=== PATIENT | female | born 1970 | race Caucasian/White ===

== ENCOUNTER 2018-06-26 21:47 | Emergency (ER) | payer SELFPAY ==
[2018-06-26 23:49] LABS: ALANINE AMINOTRANSFERASE 22 U/L (9-52); ALBUMIN 4.5 g/dL (3.5-5.0); ALCOHOL 66 mg/dL (NONE DETECTED); ALKALINE PHOSPHATASE 68 U/L (38-126); ANION GAP 10 (5-19); ASPARTATE AMINO TRANSFERASE 24 U/L (14-36); BILIRUBIN,DIRECT 0.2 mg/dL (0.0-0.4); BILIRUBIN,TOTAL 0.3 mg/dL (0.2-1.3); BLOOD UREA NITROGEN 13 mg/dL (7-20); CALCIUM 9.6 mg/dL (8.4-10.2); CARBON DIOXIDE 27 mmol/L (22-30); CHLORIDE 105 mmol/L (98-107); GLUCOSE 86 mg/dL (75-110); POTASSIUM 3.9 mmol/L (3.6-5.0); TOTAL PROTEIN 7.2 g/dL (6.3-8.2)
[2018-06-26 23:52] LABS: ACETAMINOPHEN < 10 ug/mL (10-30); SALICYLATE < 1.0 mg/dL (2.0-20.0)
[2018-06-26 23:54] LABS: APPEARANCE,URINE SLIGHTLY-CLOUDY; BILIRUBIN,URINE NEGATIVE (NEGATIVE); COLOR,URINE STRAW; GLUCOSE, URINE NEGATIVE (NEGATIVE); KETONES,URINE NEGATIVE (NEGATIVE); LEUKOCYTE ESTERASE,URINE SMALL (NEGATIVE); NITRITE,URINE NEGATIVE (NEGATIVE); PROTEIN,URINE NEGATIVE (NEGATIVE); URINE SPECIFIC GRAVITY 1.004; UROBILINOGEN,URINE NEGATIVE mg/dL (<2.0)
[2018-06-27 00:12] LABS: URINE AMPHETAMINES SCREEN NEGATIVE; URINE BARBITURATES SCREEN NEGATIVE; URINE BENZODIAZEPINES SCREEN NEGATIVE; URINE COCAINE SCREEN UNCONFIRMED POSITIVE; URINE MARIJUANA (THC) SCREEN NEGATIVE; URINE METHADONE SCREEN NEGATIVE; URINE PHENCYCLIDINE SCREEN NEGATIVE
--- NOTE | 2018-06-27 00:28 | ER Document Report ---
Addendum entered and electronically signed by DARREN NASH MD 06/27/18 12:13: Discharge - Discharge Clinical Impression: Diphenhydramine overdose Qualifiers: Encounter type: initial encounter Injury intent: intentional self-harm Qualified Code(s): T45.0X2A - Poisoning by antiallergic and antiemetic drugs, intentional self-harm, initial encounter Depression Qualifiers: Depression Type: unspecified Qualified Code(s): F32.9 - Major depressive disord er, single episode, unspecified Condition: Stable Disposition: HOME, SELF-CARE Additional Instructions: You have been evaluated by both medical and behavioral health teams and have been deemed appropriate for discharge. You have been provided prescription for zyprexa 5mg twice daily; please take as directed. You have been provided a local resource list of area providers and mobile crisis contact information. Please follow up with outpatient mental health services in 3-5 days. DEPRESSION: Your evaluation reveals that you have mental depression. While symptoms may be vague, they often include disturbance of sleep, fatigue, loss of appetite, and general loss of interest in life. While depression may be a side effect of drugs, or a reaction to a major change in your life, many cases have no known cause. If depression is acute, and related to a major loss in your life, you can expect it to clear completely with time. If you have been depressed a long time, are prone to repeated bouts of depression or low mood, or have been thinking of suicide, get help. Depression can be treated with anti-depressant medication and counselling. Long-term depression will often take a few weeks to clear, even with appropriate medication. Follow-up care is important. FOLLOW-UP CARE: If you have been referred to a physician for follow-up care, call the physicians office for an appointment as you were instructed or within the next two days.~ If you experience worsening or a significant change in your symptoms, notify the physician immediately or return to the Emergency Department at any time for re-evaluation. Prescriptions: Olanzapine [Zyprexa 5 mg Tablet] 5 mg PO BID #14 tablet Referrals: [facility] [Outside] - Follow up as needed [facility] [Outside] - Follow up in 3-5 days Addendum entered and electronically signed by DARREN NASH MD 06/27/18 12:11: Discharge - Discharge Clinical Impression: Diphenhydramine overdose Qualifiers: Encounter type: initial encounter Injury intent: intentional self-harm Qualified Code(s): T45.0X2A - Poisoning by antiallergic and antiemetic drugs, intentional self-harm, initial encounter Depression Qualifiers: Depression Type: unspecified Qualified Code(s): F32.9 - Major depressive disorder, single episode, unspecified Condition: Stable Disposition: HOME, SELF-CARE Additional Instructions: You have been evaluated by both medical and behavioral health teams and have been deemed appropriate for discharge. You have been provided prescription for zyprexa 5mg twice daily; please take as directed. You have been provided a local resource list of area providers and mobile crisis contact information. Please follow up with outpatient mental health services in 3-5 days. DEPRESSION: Your evaluation reveals that you have mental depression. While symptoms may be vague, they often include disturbance of sleep, fatigue, loss of appetite, and general loss of interest in life. While depression may be a side effect of drugs, or a reaction to a major change in your life, many cases have no known cause. If depression is acute, and related to a major loss in your life, you can expect it to clear completely with time. If you have been depressed a long time, are prone to repeated bouts of depression or low mood, or have been thinking of suicide, get help. Depression can be treated with anti-depressant medication and counselling. Long-term depression will often take a few weeks to clear, even with appropriate medication. Follow-up care is important. FOLLOW-UP CARE: If you have been referred to a physician for follow-up care, call the ysicians office for an appointment as you were instructed or within the next two days.~ If you experience worsening or a significant change in your symptoms, notify the physician immediately or return to the Emergency Department at any time for re-evaluation. Referrals: [facility] [Outside] - Follow up as needed [facility] [Outside] - Follow up in 3-5 days Addendum entered and electronically signed by ALEX GARCIA LCSWA 06/27/18 11:39: Discharge - Discharge Clinical Impression: Diphenhydramine overdose Qualifiers: Encounter type: initial encounter Injury intent: intentional self-harm Qualifi ed Code(s): T45.0X2A - Poisoning by antiallergic and antiemetic drugs, intentional self-harm, initial encounter Depression Qualifiers: Depression Type: unspecified Qualified Code(s): F32.9 - Major depressive dis order, single episode, unspecified Condition: Stable Disposition: HOME, SELF-CARE Additional Instructions: You have been evaluated by both medical and behavioral health teams and have been deemed appropriate for discharge. You have been provided prescription for zyprexa 5mg twice daily; please take as directed. You have been provided a local resource list of area providers and mobile crisis contact information. Please follow up with outpatient mental health services in 3-5 days. DEPRESSION: Your evaluation reveals that you have mental depression. While symptoms may be vague, they often include disturbance of sleep, fatigue, loss of appetite, and general loss of interest in life. While depression may be a side effect of drugs, or a reaction to a major change in your life, many cases have no known cause. If depression is acute, and related to a major loss in your life, you can expect it to clear completely with time. If you have been depressed a long time, are prone to repeated bouts of depression or low mood, or have been thinking of suicide, get help. Depression can be treated with anti-depressant medication and counselling. Long-term depression will often take a few weeks to clear, even with appropriate medication. Follow-up care is important. FOLLOW-UP CARE: If you have been referred to a physician for follow-up care, call the physicians office for an appointment as you were instructed or within the next two days.~ If you experience worsening or a significant change in your symptoms, notify the physician immediately or return to the Emergency Department at any time for re-evaluation. Referrals: [facility] [Outside] - Follow up as needed [facility] [Outside] - Follow up in 3-5 days Original Note: ED General - General Chief Complaint: Possible Overdose Stated Complaint: POSSIBLE OVERDOSE Time Seen by Provider: 06/26/18 22:02 Notes: Patient is a 48-year-old female with past medical history of polysubstance abuse, multiple psychiatric comorbidities, presents after allegedly ingesting 30 25 mg tablets of Benadryl shortly prior to arrival. Apparently this was an alleged suicide attempt although at the time of my evaluation the patient denies this stating that this was merely something that she did try to make significant with other with whom she lives "leave me alone". The patient reports that she just wants to go home, denies that there is a true suicide attempt tonight. Denies any acute medical concerns although does note that since taking these medications she has developed a generalized, throbbing, global headache similar to headaches she has had in the past. Nothing improves or worsens the headache. She also notes that she has felt somewhat nauseated and has had one episode of vomiting. - Related Data Allergies/Adverse Reactions: povidone-iodine [From Betadine] Allergy (Verified 06/26/18 22:53) soap [From Betadine] Allergy (Verified 06/26/18 22:53) tramadol [From Ultram] Allergy (Verified 06/26/18 22:53) Past Medical History - General Information source: Patient - Social History Smoking Status: Current Every Day Smoker Frequency of alcohol use: Occasional Drug Abuse: Cocaine Lives with: Spouse/Significant other Family History: Reviewed & Not Pertinent Patient has suicidal ideation: No Patient has homicidal ideation: No Renal/ Medical History: Denies: Hx Peritoneal Dialysis Psychiatric Medical History: Reports: Hx Bipolar Disorder Review of Systems - Review of Systems Notes: Constitutional: Negative for fever. HENT: Negative for sore throat. Eyes: Negative for visual changes. Cardiovascular: Negative for chest pain. Respiratory: Negative for shortness of breath. Gastrointestinal: Negative for abdominal pain, positive for nausea and vomiting Genitourinary: Negative for dysuria. Musculoskeletal: Negative for back pain. Skin: Negative for rash. Neurological: Positive for headache 10 point ROS negative except as marked above and in HPI. Physical Exam - Vital signs Vitals: Temp 97.9 F 06/26/18 22:01 Interpretation: Hypertensive Notes: PHYSICAL EXAMINATION: GENERAL: Well-appearing, well-nourished and in no acute distress. HEAD: Atraumatic, normocephalic. EYES: Pupils equal round and reactive to light, extraocular movements intact, sclera anicteric, conjunctiva are normal. ENT: nares patent, oropharynx clear without exudates. Moderately dry mucous membranes. NECK: Normal range of motion, supple without lymphadenopathy LUNGS: Breath sounds clear to auscultation bilaterally and equal. No wheezes rales or rhonchi. HEART: Regular rate and rhythm without murmurs ABDOMEN: Soft, nontender, normoactive bowel sounds. No guarding, no rebound. No masses appreciated. EXTREMITIES: Normal range of motion, no pitting or edema. No cyanosis. NEUROLOGICAL: No focal neurological deficits. Moves all extremities spontaneously and on command. PSYCH: Anxious, tearful SKIN: Warm, Dry, normal turgor, no rashes or lesions noted. Course - Re-evaluation Re-evalutation: 06/27/18 00:27 Patient presents after an overdose on 30 tablets of 25 mg diphenhydramine. Patient states she did this to "make people that I am living with leave me alone". Denies suicidal intention behind this overdose. States that since the ingestion she has been nauseated but denies any additional symptoms. Denies a history of previous overdoses similar to this. Denies any coingestions. Poison control has been contacted. Patient will remain in the emergency department for evaluation and disposition by [facility] in the morning. 06/27/18 03:38 Patient remains on monitor per poison control recommendations for 8 hours of clinical monitoring. The patient has had one episode of vomiting here in the emergency department. Remains alert and oriented. Remains on telemetry. Metoclopramide has been ordered for the patient's headache. Nighttime home medications have been ordered. - Vital Signs Vital signs: Temp Pulse Resp BP Pulse Ox 98.0 F 17 133/90 H 99 06/27/18 01:53 06/27/18 02:01 06/27/18 02:01 06/27/18 02:01 - Laboratory Result Diagrams: 06/27/18 00:25 06/26/18 22:08 Laboratory results interpreted by me: 06/26/18 06/26/18 06/27/18 22:08 22:15 00:25 Hgb 15.8 H MCH 33.9 H Ur Leukocyte Esterase SMALL H Salicylates < 1.0 L Acetaminophen < 10 L - EKG Interpretation by Me Additional EKG results interpreted by me: 06/27/18 03:39 Sinus tachycardia, rate 112. No ST elevations or depressions. QTC is 486. Discharge - Discharge Clinical Impression: Diphenhydramine overdose Qualifiers: Encounter type: initial encounter Injury intent: intentional self-harm Qualified Code(s): T45.0X2A - Poisoning by antiallergic and antiemetic drugs, intentional self-harm, initial encounter Depression Qualifiers: Depression Type: unspecified Qualified Code(s): F32.9 - Major depressive disorder, single episode, unspecified Condition: Fair
[2018-06-27 00:36] LABS: ABSOLUTE LYMPHOCYTES (AUTO) 1.8 10^3/uL (0.5-4.7); ABSOLUTE MONOCYTES (AUTO) 0.5 10^3/uL (0.1-1.4); ABSOLUTE NEUT (AUTO) 4.6 10^3/uL (1.7-8.2); BASOPHILS % (AUTO) 0.4 % (0-2); EOSINOPHILS % (AUTO) 0.4 % (0-6); HEMATOCRIT 44.9 % (36.0-47.0); HEMOGLOBIN 15.8 g/dL (12.0-15.5); LYMPHOCYTES % (AUTO) 25.7 % (13-45); MEAN CORPUSCULAR HEMOGLOBIN 33.9 pg (27.0-33.4); MEAN CORPUSCULAR HGB CONC 35.2 g/dL (32.0-36.0); MEAN CORPUSCULAR VOLUME 96 fl (80-97); PLATELET COUNT 390 10^3/uL (150-450); RED BLOOD COUNT 4.66 10^6/uL (3.72-5.28); SEGMENTED NEUTROPHILS % (AUTO) 66.5 % (42-78); TOTAL CELLS COUNTED % (AUTO) 100 %; WHITE BLOOD COUNT 6.8 10^3/uL (4.0-10.5)
[2018-06-27] MEDS ORDERED: ONDANSETRON HCL INJ/PF 4 MG/2 ML SDV ONE (00:55)
[2018-06-27] MEDS ORDERED: NICOTINE 21 MG/24 HR PATCH.TD24 TD ONE (00:55)
[2018-06-27] MEDS ORDERED: GABAPENTIN 100 MG CAPSULE PO ONE ×2 (00:55→10:00)
[2018-06-27] MEDS ORDERED: DIVALPROEX SODIUM 500 MG TAB.SR.24H PO ONE (00:55)
[2018-06-27] MEDS ORDERED: ONDANSETRON HCL INJ/PF 4 MG/2 ML SDV IV ONE (00:55)
[2018-06-27] MEDS ORDERED: METOCLOPRAMIDE HCL INJ/PF 10 MG/2 ML SDV IV ONE ×3 (03:20→06:38)
[2018-06-27] MEDS ORDERED: DIPHENHYDRAMINE HCL 50 MG/ML VIAL IV ONE (06:38)
[2018-06-27] MEDS ORDERED: ACETAMINOPHEN 325 MG TABLET PO PRN (06:38)
[2018-06-27] MEDS ORDERED: ONDANSETRON 4 MG TAB.RAPDIS PO PRN (06:39)
[2018-06-27] MEDS ORDERED: IBUPROFEN 400 MG TABLET PO PRN (06:39)
--- NOTE | 2018-06-27 07:26 | EKG REPORT ---
SEVERITY:- ABNORMAL ECG - SINUS TACHYCARDIA BIATRIAL ABNORMALITIES BORDERLINE PROLONGED QT INTERVAL : Confirmed by: Mehnaz Woodard MD 27-Jun-2018 07:25:39
--- NOTE | 2018-06-27 10:24 | ER Document Report ---
Doctor's Note Notes: 06/27/18 10:21 Rounds: Chart reviewed and patient interviewed. Patient reportedly took 20 or 30 Benadryl 25 mg pills. She suffers from depression as well as substance abuse. Says she does not feel suicidal this morning. Drug screen is positive for cocaine and her alcohol level was 66. EKG showed a sinus tach at 112 with nonspecific changes otherwise. Vital signs of all been essentially normal. Patient appears to be medically stable for transfer or discharge. Efrain Hall MD
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
[2018-06-27] MEDS ORDERED: OLANZAPINE 5 MG TABLET PO ONE (12:11)
[2018-06-27 12:26] VITALS: BP 120/78
--- NOTE | 2018-06-27 20:50 | EKG REPORT ---
SEVERITY:- NORMAL ECG - SINUS RHYTHM : Confirmed by: Mehnaz Woodard MD 27-Jun-2018 20:49:29
== END 2018-06-27 12:26 | disposition home or self-care (01) ==
LOC: ER 21:47
DX: T45.0X2A Poisoning by antiallergic and antiemetic drugs, intentional self-harm, initial encounter (principal); F32.9 Major depressive disorder, single episode, unspecified; R51 Headache; F17.200 Nicotine dependence, unspecified, uncomplicated; X58.XXXA Exposure to other specified factors, initial encounter
CPT/HCPCS: 93005 ×2; 96376; 99285; 96374; 96375; 36415; 80307 ×4; 85025; 80053; 81001; 93010 ×2; J1200; S0119; J2765; J2405

== ENCOUNTER 2019-01-21 14:17 | Emergency (ER) | payer OTHER ==
--- NOTE | 2019-01-21 14:47 | ER Document Report ---
ED Medical Screen (RME) - General Chief Complaint: Chest Pain Stated Complaint: CHEST PAIN Notes: Patient is a 48-year-old female with history of asthma, emphysema, COPD presents to the emergency department with a chief complaint of midsternal chest pain. Patient was [facility] from [facility] for chest discomfort. Patient reports that it has been constant and is midsternal. Patient reports it radiates into the back. Patient reports this has been present for 2 to 3 days. Patient reports she went to the [facility] to get a refill on her inhaler. Patient denies wheezing. Patient reports she did she does smoke a half a pack of cigarettes per day. Patient reports she has a chronic cough with rodriguez to black sputum but has been more consistent and worse over the past few weeks. Patient reports she does check her oxygen saturation at home and it has been between 8492 on room air. TRAVEL OUTSIDE OF THE [place] IN LAST 30 DAYS: No - Related Data Allergies/Adverse Reactions: doxycycline [Doxycycline] Allergy (Mild, Verified 01/21/19 14:35) rash povidone-iodine [From Betadine] Allergy (Verified 01/21/19 14:35) soap [From Betadine] Allergy (Verified 01/21/19 14:35) tramadol [From Ultram] Allergy (Verified 01/21/19 14:35) tramadol HCl [From Ultram] Allergy (Verified 01/21/19 14:35) Past Medical History - Social History Chew tobacco use (# tins/day): No Frequency of alcohol use: None Drug Abuse: None - Past Medical History Cardiac Medical History: Denies: Hx Coronary Artery Disease, Hx Heart Attack, Hx Hypertension Pulmonary Medical History: Reports: Hx Bronchitis Denies: Hx Asthma, Hx COPD, Hx Pneumonia Neurological Medical History: Reports: Hx Migraine, Hx Seizures. Denies: Hx Cerebrovascular Accident Renal/ Medical History: Denies: Hx Peritoneal Dialysis Musculoskeltal Medical History: Denies Hx Arthritis Psychiatric Medical History: Reports: Hx Bipolar Disorder Past Surgical History: Reports: Hx Abdominal Surgery, Hx Breast Surgery, Hx Hysterectomy - PARTIAL, Hx Mastectomy - breast lump removed. Denies: Hx Pacemak er - Immunizations Hx Diphtheria, Pertussis, Tetanus Vaccination: Yes Physical Exam - Vital signs Vitals: Temp Pulse Resp BP Pulse Ox 98.0 F 88 16 132/74 H 97 01/21/19 14:31 01/21/19 14:31 01/21/19 14:31 01/21/19 14:31 01/21/19 14:31 - Respiratory Respiratory status: No respiratory distress Breath sounds: Normal Chest palpation: Normal Course - Re-evaluation Re-evalutation: 01/21/19 14:47 I have greeted and performed a rapid initial assessment of this patient. A comprehensive ED assessment and evaluation of the patient, analysis of test results and completion of the medical decision making process will be conducted by additional ED providers. - Vital Signs Vital signs: Temp Pulse Resp BP Pulse Ox 98.0 F 88 16 132/74 H 97 01/21/19 14:31 01/21/19 14:31 01/21/19 14:31 01/21/19 14:31 01/21/19 14:31
[2019-01-21 15:12] LABS: ABSOLUTE LYMPHOCYTES (AUTO) 1.4 10^3/uL (0.5-4.7); ABSOLUTE MONOCYTES (AUTO) 0.3 10^3/uL (0.1-1.4); ABSOLUTE NEUT (AUTO) 3.6 10^3/uL (1.7-8.2); BASOPHILS % (AUTO) 0.9 % (0-2); EOSINOPHILS % (AUTO) 0.8 % (0-6); LYMPHOCYTES % (AUTO) 25.3 % (13-45); MEAN CORPUSCULAR HEMOGLOBIN 32.8 pg (27.0-33.4); MEAN CORPUSCULAR HGB CONC 34.3 g/dL (32.0-36.0); MEAN CORPUSCULAR VOLUME 96 fl (80-97); MONOCYTES % (AUTO) 6.2 % (3-13); PLATELET COUNT 249 10^3/uL (150-450); RED BLOOD COUNT 4.28 10^6/uL (3.72-5.28); RED CELL DISTRIBUTION WIDTH 13.8 % (11.5-14.0); SEGMENTED NEUTROPHILS % (AUTO) 66.8 % (42-78); TOTAL CELLS COUNTED % (AUTO) 100 %; WHITE BLOOD COUNT 5.4 10^3/uL (4.0-10.5)
--- NOTE | 2019-01-21 15:26 | RADIOLOGY REPORT (SQ) ---
EXAM DESCRIPTION: CHEST 2 VIEWS COMPLETED DATE/TIME: 01/21/2019 3:16 pm REASON FOR STUDY: chest pain, sob COMPARISON: 01/01/2015 EXAM PARAMETERS: NUMBER OF VIEWS: two views TECHNIQUE: Digital Frontal and Lateral radiographic views of the chest acquired. RADIATION DOSE: NA LIMITATIONS: none FINDINGS: LUNGS AND PLEURA: No opacities, masses or pneumothorax. No pleural effusion. MEDIASTINUM AND HILAR STRUCTURES: No masses or contour abnormalities. HEART AND VASCULAR STRUCTURES: Heart normal size. No evidence for failure. BONES: No acute findings. HARDWARE: None in the chest. OTHER: Neurostimulator is in place it overlies the lower cervical spine. IMPRESSION: NO ACUTE RADIOGRAPHIC FINDING IN THE CHEST. TECHNICAL DOCUMENTATION: JOB ID: [id number] [employer]- All Rights Reserved Reading location - IP/workstation name: [email or web address]
[2019-01-21 15:33] LABS: ALBUMIN 3.9 g/dL (3.5-5.0); ALKALINE PHOSPHATASE 57 U/L (38-126); ASPARTATE AMINO TRANSFERASE 19 U/L (14-36); BILIRUBIN,DIRECT 0.1 mg/dL (0.0-0.4); BILIRUBIN,TOTAL 0.2 mg/dL (0.2-1.3); BLOOD UREA NITROGEN 13 mg/dL (7-20); CALCIUM 8.8 mg/dL (8.4-10.2); CHLORIDE 105 mmol/L (98-107); GLUCOSE 91 mg/dL (75-110); POTASSIUM 4.5 mmol/L (3.6-5.0); TOTAL PROTEIN 6.6 g/dL (6.3-8.2)
[2019-01-21 15:43] LABS: ANION GAP 6 (5-19); CARBON DIOXIDE 27 mmol/L (22-30)
--- NOTE | 2019-01-21 19:27 | RADIOLOGY REPORT (SQ) ---
EXAM DESCRIPTION: CTA CHEST COMPLETED DATE/TIME: 01/21/2019 7:15 pm REASON FOR STUDY: sob/hx hypoxia COMPARISON: 05/22/2011 TECHNIQUE: CT scan of the chest performed using helical scanning technique with dynamic intravenous contrast injection. Images reviewed with lung, soft tissue and bone windows. Reconstructed coronal and sagittal MPR images reviewed. Additional 3 dimensional post-processing performed to develop Maximal Intensity Projection images (TX P). All images stored on PACS. All CT scanners at this facility use dose modulation, iterative reconstruction, and/or weight based d osing when appropriate to reduce radiation dose to as low as reasonably achievable (ALARA). [facility]: Dose Right [facility]: CareDose [facility]: Dose Right [facility]: Teradose 4D [facility]: Viva Dengi CONTRAST TYPE AND DOSE: contrast/concentration: Isovue 350.00 mg/ml; Total Contrast Delivered: 50.0 ml; Total Saline Delivered: 52.4 ml Contrast bolus adequate for pulmonary arteries and aorta. RENAL FUNCTION: BUN 13 creatinine 0.9c RADIATION DOSE: CT Rad equipment meets quality standard of care and radiation dose reduction techniq ues were employed. CTDIvol: 9.9 - 14.3 mGy. DLP: 537 mGy-cm. . LIMITATIONS: None. FINDINGS: LUNGS AND PLEURA: No masses, infiltrates, or pneumothorax. No pleural effusions or pleura l calcifications. AORTA AND GREAT VESSELS: No aneurysm. No dissection. HEART: No pericardial effusion. No significant coronary artery calcifications. PULMONARY ARTERIES: No emboli visualized in the main pulmonary arteries or the segmental branches. HILAR AND MEDIASTINAL STRUCTURES: No identified masses or abnormal nodes. HARDWARE: None in the chest. UPPER ABDOMEN: No significant findings. Limited exam. THYROID AND OTHER SOFT TISSUES: No masses. No adenopathy. BONES: No acute or significant finding. 3D MIPS: Confirm above findings. OTHER: No other significant finding. IMPRESSION: No pulmonary emboli. No aortic aneurysm or dissection. COMMENT: Quality ID # [id number]: Final reports with documentation of one or more dose reduction techniques (e.g., Automated exposure control, adjustment of the mA and/or kV according to patient size, use of iterative reconstruction technique) TECHNICAL DOCUMENTATION: JOB ID: [id number] [employer]- All Rights Reserved Reading location - IP/workstation name: [email or web address]
--- NOTE | 2019-01-21 19:51 | EKG REPORT ---
SEVERITY:- NORMAL ECG - SINUS RHYTHM : Confirmed by: Mehnaz Woodard MD 21-Jan-2019 19:50:48
[2019-01-21] MEDS ORDERED: ASPIRIN 81 MG TABLET, CHEWABLE PO ONE (20:04)
[2019-01-21] MEDS ORDERED: ASPIRIN 81 MG TABLET, CHEWABLE ONE (20:06)
[2019-01-21] MEDS ORDERED: DIAZEPAM 5 MG TABLET PO ONE (20:42)
--- NOTE | 2019-01-21 20:47 | ER Document Report ---
ED Cardiac - General Chief Complaint: Chest Pain Stated Complaint: CHEST PAIN Time Seen by Provider: 01/21/19 17:41 Mode of Arrival: Ambulatory Information source: Patient TRAVEL OUTSIDE OF THE [place] IN LAST 30 DAYS: No - HPI Notes: Patient presents with chest pain. She states it is substernal and is been going on for approximate 1 week. It does radiate to her back. It is been constant. Nothing makes it better or worse. She has had some cough no significant shortness of breath nausea or vomiting. No rashes. No trauma. She denies any previous history of cardiac disease. No history of DVTs or blood clots. The pain has been moderate and sharp. - Related Data Allergies/Adverse Reactions: doxycycline [Doxycycline] Allergy (Mild, Verified 01/21/19 14:35) rash povidone-iodine [From Betadine] Allergy (Verified 01/21/19 14:35) soap [From Betadine] Allergy (Verified 01/21/19 14:35) tramadol [From Ultram] Allergy (Verified 01/21/19 14:35) tramadol HCl [From Ultram] Allergy (Verified 01/21/19 14:35) Past Medical History - General Information source: Patient - Social History Smoking Status: Current Every Day Smoker Chew tobacco use (# tins/day): No Frequency of alcohol use: None Drug Abuse: None Family History: Reviewed & Not Pertinent Patient has suicidal ideation: No Patient has homicidal ideation: No - Past Medical History Cardiac Medical History: Denies: Hx Coronary Artery Disease, Hx Heart Attack, Hx Hypertension Pulmonary Medical History: Reports: Hx Bronchitis Denies: Hx Asthma, Hx COPD, Hx Pneumonia Neurological Medical History: Reports: Hx Migraine, Hx Seizures. Denies: Hx Cerebrovascular Accident Renal/ Medical History: Denies: Hx Peritoneal Dialysis Musculoskeletal Medical History: Denies Hx Arthritis Psychiatric Medical History: Reports: Hx Bipolar Disorder Past Surgical History: Reports: Hx Abdominal Surgery, Hx Breast Surgery, Hx Hysterectomy - PARTIAL, Hx Mastectomy - breast lump removed. Denies: Hx Pacema ker - Immunizations Hx Diphtheria, Pertussis, Tetanus Vaccination: Yes Hx Pneumococcal Vaccination: 04/22/00 Review of Systems - Review of Systems Constitutional: denies: Chills, Fever Cardiovascular: Chest pain. denies: Palpitations Respiratory: Cough. denies: Hemoptysis Gastrointestinal: denies: Diarrhea, Vomiting -: Yes All other systems reviewed and negative Physical Exam - Vital signs Vitals: Temp Pulse Resp BP Pulse Ox 98.0 F 88 16 132/74 H 97 01/21/19 14:31 01/21/19 14:31 01/21/19 14:31 01/21/19 14:31 01/21/19 14:31 Interpretation: Normal - General General appearance: Appears well, Alert - HEENT Head: Normocephalic, Atraumatic Eyes: Normal Pupils: PERRL - Respiratory Respiratory status: No respiratory distress Chest status: Nontender Breath sounds: Normal Chest palpation: Normal - Cardiovascular Rhythm: Regular Heart sounds: Normal auscultation Murmur: No - Abdominal Inspection: Normal Distension: No distension Bowel sounds: Normal Tenderness: Nontender Organomegaly: No organomegaly - Back Back: Normal, Nontender - Extremities General upper extremity: Normal inspection, Nontender, Normal color, Normal ROM, Normal temperature General lower extremity: Normal inspection, Nontender, Normal color, Normal ROM, Normal temperature, Normal weight bearing. No: David's sign - Neurological Neuro grossly intact: Yes Cognition: Normal Orientation: AAOx4 [place] Coma Scale Eye Opening: Spontaneous Shyam Coma Scale Verbal: Oriented Shyam Coma Scale Motor: Obeys Commands Shyam Coma Scale Total: 15 Speech: Normal Motor strength normal: LUE, RUE, LLE, RLE Sensory: Normal - Psychological Associated symptoms: Normal affect, Normal mood - Skin Skin Temperature: Warm Skin Moisture: Dry Skin Color: Normal Course - Re-evaluation Re-evalutation: 01/21/19 20:45 Patient presents with chest pain. Is been going on for several days and constant. She has negative troponins. Her EKG shows no evidence of ischemia. She has no evidence of pulmonary embolism or aortic pathology. No evidence of lung pathology. I feel the patient is stable to be discharged home and follow- up with a stress test as an outpatient. - Vital Signs Vital signs: Temp Pulse Resp BP Pulse Ox 98.0 F 88 20 120/87 H 98 01/21/19 14:31 01/21/19 14:31 01/21/19 18:08 01/21/19 18:08 01/21/19 18:08 - Laboratory Result Diagrams: 01/21/19 14:54 01/21/19 14:54 - Diagnostic Test Radiology reviewed: Image reviewed, Reports reviewed - EKG Interpretation by Me EKG shows normal: Sinus rhythm Rate: Normal - 85 Rhythm: NSR [place]/QRS: No: Right axis deviation, Left axis deviation Discharge - Discharge Clinical Impression: Chest pain Qualifiers: Chest pain type: unspecified Qualified Code(s): R07.9 - Chest pain, unspecified Condition: Stable Disposition: HOME, SELF-CARE Instructions: Chest Pain of Unclear Cause ([facility]) Additional Instructions: Please call your primary care physician as soon as possible to arrange for a stress test.
[2019-01-21 21:14] VITALS: BP 122/84
== END 2019-01-21 21:14 | disposition home or self-care (01) ==
LOC: ER 14:17
DX: R07.2 Precordial pain (principal); R05 Cough; F17.200 Nicotine dependence, unspecified, uncomplicated; Z88.1 Allergy status to other antibiotic agents; Z88.3 Allergy status to other anti-infective agents; Z88.5 Allergy status to narcotic agent
CPT/HCPCS: 36415; 71046; 71275; 80053; 84484; 85025; 93005; 93010

== ENCOUNTER 2019-05-30 13:14 | Emergency (ER) | payer OTHER ==
[2019-05-30] MEDS ORDERED: SULFAMETHOXAZOLE/TRIMETHOPRIM 800-160 MG TABLET PO ONE (13:38)
[2019-05-30] MEDS ORDERED: CEPHALEXIN 500 MG CAPSULE PO ONE (13:38)
[2019-05-30] MEDS ORDERED: LIDOCAINE 4% TRANSPARENT DRESSING 5 GM KIT TP ONE (13:56)
--- NOTE | 2019-05-30 14:26 | ER Document Report ---
HPI - HPI Time Seen by Provider: 05/30/19 13:35 Pain Level: 3 Notes: Otherwise healthy 49-year-old female presenting to the emergency department chief complaint of left index finger pain, swelling and redness. Patient reports history of MRSA. Denies any fevers, chills, no red streaks from the area. Patient reports she took a Tylenol and ibuprofen prior to arrival. - REPRODUCTIVE LMP: partial hysterectomy Reproductive: DENIES: : Past Medical History - General Information source: Patient - Social History Smoking Status: Current Every Day Smoker Chew tobacco use (# tins/day): No Frequency of alcohol use: Rare Drug Abuse: None Family History: Reviewed & Not Pertinent Patient has suicidal ideation: No Patient has homicidal ideation: No - Past Medical History Cardiac Medical History: Denies: Hx Coronary Artery Disease, Hx Heart Attack, Hx Hypertension Pulmonary Medical History: Reports: Hx Bronchitis Denies: Hx Asthma, Hx COPD, Hx Pneumonia Neurological Medical History: Reports: Hx Migraine, Hx Seizures. Denies: Hx Cerebrovascular Accident Renal/ Medical History: Denies: Hx Peritoneal Dialysis Musculoskeletal Medical History: Denies Hx Arthritis Psychiatric Medical History: Reports: Hx Bipolar Disorder Past Surgical History: Reports: Hx Abdominal Surgery, Hx Breast Surgery, Hx Hysterectomy - PARTIAL, Hx Mastectomy - breast lump removed. Denies: Hx Pacemaker - Immunizations Hx Diphtheria, Pertussis, Tetanus Vaccination: Yes Hx Pneumococcal Vaccination: 04/22/00 Vertical Provider Document - CONSTITUTIONAL Notes: PHYSICAL EXAMINATION: GENERAL: Well-appearing, well-nourished and in no acute distress. HEAD: Atraumatic, normocephalic. EYES: Pupils equal round extraocular movements intact, conjunctiva are normal. ENT: Nares patent NECK: Normal range of motion LUNGS: No respiratory distress Musculoskeletal: Normal range of motion NEUROLOGICAL: Normal speech, normal gait. PSYCH: Normal mood, normal affect. SKIN: Area of induration with fluctuance noted to left index finger. Normal range of motion. Cap refill less than 3 seconds. - INFECTION CONTROL TRAVEL OUTSIDE OF THE [place] IN LAST 30 DAYS: No Course - Re-evaluation Re-evalutation: Abscess incised and drained, patient tolerated well. Will start on antibiotics. ED return precautions discussed. - Vital Signs Vital signs: Temp Pulse Resp BP Pulse Ox 97.5 F 96 16 122/73 99 05/30/19 13:28 05/30/19 13:28 05/30/19 13:28 05/30/19 13:28 05/30/19 13:28 Procedures - Incision and Drainage Left index finger Type: Simple Anesthetic type: 1% Lidocaine Blade size: 11 I&D procedure: Shurclens applied Incision Method: Incision made by scalpel Discharge - Discharge Clinical Impression: Abscess Condition: Stable Disposition: HOME, SELF-CARE Additional Instructions: You were seen for an abscess that required drainage. Please clean this area with soap and water twice daily and apply a topical antibiotic. Dress the area after each cleaning. Please take Tylenol or ibuprofen for pain. Please return if you develop fever, vomiting, the pain at the site worsens, you notice spreading redness from the area, or you have any other symptoms that are concerning to you. Prescriptions: Sulfamethoxazole/Trimethoprim [Bactrim Ds Tablet] 1 tab PO BID #14 tablet Referrals: SAMUEL TURNER MD [Primary Care Provider] - Follow up as needed
[2019-05-30 14:45] VITALS: BP 106/78
== END 2019-05-30 14:52 | disposition home or self-care (01) ==
LOC: ER 13:14
PROC: 0H9GXZZ Drainage of Left Hand Skin, External Approach (ICD-10-PCS; principal; 2019-05-30)
DX: L02.512 Cutaneous abscess of left hand (principal); M79.645 Pain in left finger(s); M79.89 Other specified soft tissue disorders; F17.200 Nicotine dependence, unspecified, uncomplicated; Z79.899 Other long term (current) drug therapy
CPT/HCPCS: 26010; J3490

== ENCOUNTER 2019-07-23 14:40 | Inpatient (IN) | payer OTHER ==
--- NOTE | 2019-07-23 14:48 | ER Document Report ---
ED Medical Screen (RME) - General Chief Complaint: Abdominal Pain Stated Complaint: ABDOMINAL PAIN Time Seen by Provider: 07/23/19 14:44 Primary Care Provider: SAMUEL TURNER MD [Primary Care Provider] - Follow up as needed Mode of Arrival: Wheelchair Information source: Patient Notes: 49-year-old female presented to ED for complaint of abdominal pain to the generalized abdomen x2 days. She states it is very sharp. She is moaning. She is alert oriented respirations regular nonlabored. She states she just vomiting but no diarrhea. She does smoke a pack a day does not drink alcohol or use any drugs according to the patient. I have greeted and performed a rapid initial assessment of this patient. A comprehensive ED assessment and evaluation of the patient, analysis of test results and completion of medical decision making process will be conducted by an additional ED providers. TRAVEL OUTSIDE OF THE [place] IN LAST 30 DAYS: No - Related Data Allergies/Adverse Reactions: doxycycline [Doxycycline] Allergy (Mild, Verified 05/30/19 13:37) rash povidone-iodine [From Betadine] Allergy (Verified 05/30/19 13:37) soap [From Betadine] Allergy (Verified 05/30/19 13:37) tramadol [From Ultram] Allergy (Verified 05/30/19 13:37) tramadol HCl [From Ultram] Allergy (Verified 05/30/19 13:37) Past Medical History - Social History Chew tobacco use (# tins/day): No Frequency of alcohol use: None Drug Abuse: None - Past Medical History Cardiac Medical History: Denies: Hx Coronary Artery Disease, Hx Heart Attack, Hx Hypertension Pulmonary Medical History: Reports: Hx Bronchitis Denies: Hx Asthma, Hx COPD, Hx Pneumonia Neurological Medical History: Reports: Hx Migraine, Hx Seizures. Denies: Hx Cerebrovascular Accident Renal/ Medical History: Denies: Hx Peritoneal Dialysis Musculoskeltal Medical History: Denies Hx Arthritis Psychiatric Medical History: Reports: Hx Bipolar Disorder Past Surgical History: Reports: Hx Abdominal Surgery, Hx Breast Surgery, Hx Hysterectomy - PARTIAL, Hx Mastectomy - breast lump removed. Denies: Hx Pacemaker - Immunizations Hx Diphtheria, Pertussis, Tetanus Vaccination: Yes Physical Exam - Vital signs Vitals: Temp Pulse Resp BP Pulse Ox 98.3 F 109 H 18 140/96 H 97 07/23/19 14:43 07/23/19 14:43 07/23/19 14:43 07/23/19 14:43 07/23/19 14:43 Course - Vital Signs Vital signs: Temp Pulse Resp BP Pulse Ox 98.3 F 109 H 18 140/96 H 97 07/23/19 14:43 07/23/19 14:43 07/23/19 14:43 07/23/19 14:43 07/23/19 14:43 Doctor's Discharge - Discharge Referrals: SAMUEL TURNER MD [Primary Care Provider] - Follow up as needed
[2019-07-23 15:17] LABS: ABSOLUTE LYMPHOCYTES (AUTO) 0.8 10^3/uL (0.5-4.7); ABSOLUTE MONOCYTES (AUTO) 0.8 10^3/uL (0.1-1.4); ABSOLUTE NEUT (AUTO) 14.1 10^3/uL (1.7-8.2); HEMATOCRIT 40.5 % (36.0-47.0); HEMOGLOBIN 14.2 g/dL (12.0-15.5); LYMPHOCYTES % (AUTO) 5.3 % (13-45); MEAN CORPUSCULAR HEMOGLOBIN 33.9 pg (27.0-33.4); MEAN CORPUSCULAR VOLUME 97 fl (80-97); MONOCYTES % (AUTO) 4.9 % (3-13); PLATELET COUNT 327 10^3/uL (150-450); RED BLOOD COUNT 4.18 10^6/uL (3.72-5.28); RED CELL DISTRIBUTION WIDTH 13.4 % (11.5-14.0); SEGMENTED NEUTROPHILS % (AUTO) 89.8 % (42-78); TOTAL CELLS COUNTED % (AUTO) 100 %; WHITE BLOOD COUNT 15.7 10^3/uL (4.0-10.5)
[2019-07-23 15:38] LABS: APPEARANCE,URINE CLOUDY; BILIRUBIN,URINE NEGATIVE (NEGATIVE); COLOR,URINE YELLOW; GLUCOSE, URINE NEGATIVE (NEGATIVE); KETONES,URINE NEGATIVE (NEGATIVE); PROTEIN,URINE 30 mg/dL (NEGATIVE); URINE SPECIFIC GRAVITY 1.013; UROBILINOGEN,URINE NEGATIVE mg/dL (<2.0)
[2019-07-23 15:41] LABS: ALBUMIN 3.8 g/dL (3.5-5.0); ALKALINE PHOSPHATASE 88 U/L (38-126); ANION GAP 8 (5-19); ASPARTATE AMINO TRANSFERASE 80 U/L (14-36); BILIRUBIN,DIRECT 0.2 mg/dL (0.0-0.4); BILIRUBIN,TOTAL 0.3 mg/dL (0.2-1.3); BLOOD UREA NITROGEN 45 mg/dL (7-20); CALCIUM 8.6 mg/dL (8.4-10.2); GLUCOSE 131 mg/dL (75-110); POTASSIUM 4.8 mmol/L (3.6-5.0); TOTAL PROTEIN 6.8 g/dL (6.3-8.2)
[2019-07-23 15:47] LABS: URINE BARBITURATES SCREEN NEGATIVE; URINE BENZODIAZEPINES SCREEN NEGATIVE; URINE MARIJUANA (THC) SCREEN NEGATIVE; URINE METHADONE SCREEN NEGATIVE; URINE PHENCYCLIDINE SCREEN NEGATIVE
[2019-07-23 15:49] LABS: URINE COCAINE SCREEN UNCONFIRMED POSITIVE
[2019-07-23 16:00] LABS: CARBON DIOXIDE 25 mmol/L (22-30); CHLORIDE 103 mmol/L (98-107)
[2019-07-23 16:12] LABS: ALCOHOL < 10 mg/dL (NONE DETECTED)
--- NOTE | 2019-07-23 16:36 | ER Document Report ---
ED GI/ - General Chief Complaint: Abdominal Pain Stated Complaint: ABDOMINAL PAIN Time Seen by Provider: 07/23/19 14:44 Mode of Arrival: Ambulatory Information source: Patient Notes: 49-year-old female presented to ED for complaint of abdominal pain generalized x2 days. She states the pain is very sharp and cramping. She was moaning in the pit area when I saw her earlier. She was alert oriented respirations regular nonlabored. She told me at that time that she did not drink alcohol or use any illicit drugs. When I just examined her now she stated that she OD on opiates 2 days ago and was Narcan at home and then stayed home with her boyfriend. She admits now that she does use meth, opiates, and cocaine. Her lipase is 16,438.5 with a BUN of 45 and creatinine of 2.31. She has a white count of 15.7 with 89.8% segs 5.3% lymphs. I have spoken with who has accepted her to be admitted to [facility]. I have added orders a PT, PTT, CT, and Tylenol level. IV fluids have been ordered and the admitting doctor will give pain medicine when she examines the patient. TRAVEL OUTSIDE OF THE [place] IN LAST 30 DAYS: No - HPI Patient complains to provider of: Abdominal pain, Vomiting Onset: Other - 2 days Timing/Duration: Gradual, Persistent, Worse Quality of pain: Sharp Severity at maximum: Severe Severity in ED: Severe Pain Level: 5 Location: Epigastric, LUQ, RUQ Associated symptoms: Nausea, Vomiting. denies: Diarrhea Exacerbated by: Movement, Walking Relieved by: Denies Similar symptoms previously: Yes - Related Data Allergies/Adverse Reactions: doxycycline [Doxycycline] Allergy (Mild, Verified 07/23/19 14:47) rash povidone-iodine [From Betadine] Allergy (Verified 07/23/19 14:47) soap [From Betadine] Allergy (Verified 07/23/19 14:47) tramadol [From Ultram] Allergy (Verified 07/23/19 14:47) tramadol HCl [From Ultram] Allergy (Verified 07/23/19 14:47) Past Medical History - General Information source: Patient - Social History Smoking Status: Current Every Day Smoker Cigarette use (# per day): Yes - Pack per day Chew tobacco use (# tins/day): No Smoking Education Provided: Yes - 4 minutes Frequency of alcohol use: None Drug Abuse: None Lives with: Spouse/Significant other Family History: Reviewed & Not Pertinent Patient has suicidal ideation: No Patient has homicidal ideation: No - Past Medical History Cardiac Medical History: Reports: None Pulmonary Medical History: Reports: Hx Asthma, Hx Bronchitis, Hx COPD EENT Medical History: Reports: None Neurological Medical History: Reports: Hx Migraine, Hx Seizures Endocrine Medical History: Reports: None Renal/ Medical History: Reports: None Malignancy Medical History: Reports: None GI Medical History: Reports: None Musculoskeletal Medical History: Reports Hx Arthritis Skin Medical History: Reports None Psychiatric Medical History: Reports: Hx Anxiety, Hx Bipolar Disorder Traumatic Medical History: Reports: None Infectious Medical History: Reports: None Past Surgical History: Reports: Hx Abdominal Surgery, Hx Breast Surgery - Lumpectomy, Hx Hysterectomy - PARTIAL - Immunizations Hx Diphtheria, Pertussis, Tetanus Vaccination: Yes Hx Pneumococcal Vaccination: 04/22/00 Review of Systems - Review of Systems Constitutional: No symptoms reported EENT: No symptoms reported Cardiovascular: No symptoms reported Respiratory: No symptoms reported Gastrointestinal: Abdominal pain, Nausea Genitourinary: No symptoms reported Female Genitourinary: No symptoms reported Musculoskeletal: No symptoms reported Skin: No symptoms reported Hematologic/Lymphatic: No symptoms reported Neurological/Psychological: No symptoms reported -: Yes All other systems reviewed and negative Physical Exam - Vital signs Vitals: Temp Pulse Resp BP Pulse Ox 98.3 F 109 H 18 140/96 H 97 07/23/19 14:43 07/23/19 14:43 07/23/19 14:43 07/23/19 14:43 07/23/19 14:43 Interpretation: Normal - General General appearance: Appears well, Alert - HEENT Head: Normocephalic, Atraumatic Eyes: Normal Pupils: PERRL - Respiratory Respiratory status: No respiratory distress Chest status: Nontender Breath sounds: Normal Chest palpation: Normal - Cardiovascular Rhythm: Regular Heart sounds: Normal auscultation Murmur: No - Abdominal Inspection: Normal Distension: No distension Bowel sounds: Hyperactive Tenderness: Tender - upper abdomen, Guarding. No: McBurney's point, Chaudhry's sign, Rebound Organomegaly: No organomegaly - Back Back: Normal, Nontender - Extremities General upper extremity: Normal inspection, Nontender, Normal color, Normal ROM, Normal temperature General lower extremity: Normal inspection, Nontender, Normal color, Normal ROM, Normal temperature, Normal weight bearing. No: David's sign - Neurological Neuro grossly intact: Yes Cognition: Normal Orientation: AAOx4 [place] Coma Scale Eye Opening: Spontaneous Shyam Coma Scale Verbal: Oriented [place] Coma Scale Motor: Obeys Commands Shyam Coma Scale Total: 15 Speech: Normal Motor strength normal: LUE, RUE, LLE, RLE Sensory: Normal - Psychological Associated symptoms: Tearful - Skin Skin Temperature: Warm Skin Moisture: Dry Skin Color: Normal Course - Vital Signs Vital signs: Temp Pulse Resp BP Pulse Ox 98.0 F 109 H 17 126/114 H 94 07/23/19 16:33 07/23/19 14:43 07/23/19 16:34 07/23/19 16:33 07/23/19 16:34 - Laboratory Result Diagrams: 07/23/19 14:54 07/23/19 14:54 Laboratory results interpreted by me: 07/23/19 07/23/19 07/23/19 14:54 14:54 14:54 WBC 15.7 H MCH 33.9 H Lymph % (Auto) 5.3 L Absolute Neuts (auto) 14.1 H Seg Neutrophils % 89.8 H Sodium 135.7 L BUN 45 H Creatinine 2.31 H Est GFR ( Amer) 27 L Est GFR (MDRD) Non-Af 22 L Glucose 131 H AST 80 H ALT 39 H Lipase 63615.5 H Urine Protein 30 H Urine Blood LARGE H Leukocyte Esterase Rfl SMALL H Acetaminophen 07/23/19 14:54 WBC MCH Lymph % (Auto) Absolute Neuts (auto) Seg Neutrophils % Sodium BUN Creatinine Est GFR ( Amer) Est GFR (MDRD) Non-Af Glucose AST ALT Lipase Urine Protein Urine Blood Leukocyte Esterase Rfl Acetaminophen < 10 L - Diagnostic Test Radiology reviewed: Image reviewed, Reports reviewed Discharge - Discharge Clinical Impression: Pancreatitis Qualifiers: Chronicity: acute Pancreatitis type: drug induced Acute pancreatitis complication: unspecified Qualified Code(s): K85.30 - Drug induced acute pancreatitis without necrosis or infection Disposition: ADMITTED INPATIENT Admitting Provider: Brigette (Hospitalist) Unit Admitted: [facility]
[2019-07-23] MEDS: NORMAL SALINE 1000 ML 1,000 ML IV PRN ×2 (16:38→17:46)
[2019-07-23] MEDS ORDERED: ONDANSETRON HCL INJ/PF 4 MG/2 ML SDV IV ONE (16:41)
[2019-07-23 16:50] LABS: INTERNATIONAL RATION (INR) 0.92; PARTIAL THROMBOPLASTIN TIME 32.9 SEC (23.5-35.8); PROTHROMBIN TIME 12.3 SEC (11.4-15.4)
--- NOTE | 2019-07-23 17:13 | RADIOLOGY REPORT (SQ) ---
EXAM DESCRIPTION: CT ABD/PELVIS NO ORAL OR IV IMAGES COMPLETED DATE/TIME: 07/23/2019 3:50 pm REASON FOR STUDY: elevated [id number] COMPARISON: None. TECHNIQUE: CT scan of the abdomen and pelvis performed without intravenous or oral contrast. Images reviewed with lung, soft tissue, and bone windows. Reconstructed coronal and sagittal MPR images revi ewed. All images stored on PACS. All CT scanners at this facility use dose modulation, iterative reconstruction, and/or weight based d osing when appropriate to reduce radiation dose to as low as reasonably achievable (ALARA). [facility]: Dose Right [facility]: CareDose [facility]: Dose Right [facility]: Teradose 4D [facility]: Glofox RADIATION DOSE: CT Rad equipment meets quality standard of care and radiation dose reduction techniq ues were employed. CTDIvol: 2.2 mGy. DLP: 113 mGy-cm.mGy. LIMITATIONS: Beam hardening artifact from a large battery pack in the posterior left flank obscures some detail. Limited evaluation without IV contrast. FINDINGS: LOWER CHEST: No significant findings. No nodules or infiltrates. NON-CONTRASTED LIVER, SPLEEN, ADRENALS: Evaluation limited by lack of IV contrast. No identified sign ificant masses. PANCREAS: The pancreas appears diffusely enlarged. Evaluation of the parenchyma is limited without I V contrast. No evidence of pancreatic ductal dilation. No peripancreatic fluid. GALLBLADDER: No identified stones by CT criteria. No inflammatory changes to suggest cholecystitis. RIGHT KIDNEY AND URETER: No suspicious masses. Assessment limited by lack of IV contrast. No signif icant calcifications. No hydronephrosis or hydroureter. LEFT KIDNEY AND URETER: No suspicious masses. Assessment limited by lack of IV contrast. No signifi cant calcifications. No hydronephrosis or hydroureter. AORTA AND RETROPERITONEUM: No aneurysm. No retroperitoneal masses or adenopathy. BOWEL AND PERITONEAL CAVITY: Large amount of stool and gas throughout the colon. No bowel obstructio n. No bowel wall thickening or inflammatory change. No ascites or pneumoperitoneum. APPENDIX: Normal. PELVIS, BLADDER, AND ABDOMINAL WALL:No abnormal masses. No free fluid. Bladder normal. BONES: No significant findings. OTHER: No other significant finding. IMPRESSION: 1. Beam hardening artifact from the left posterior flank battery pack obscures some detail in the mid abdomen. There appears to be diffuse enlargement of the pancreas with no peripancreatic fluid. Elmo ceron could be seen with early acute pancreatitis. Clinical correlation. 2. Moderate stool and gas throughout the colon which can be seen with constipation. No bowel obstruc tion. COMMENT: Quality ID # [id number]: Final reports with documentation of one or more dose reduction techniques (e.g., Automated exposure control, adjustment of the mA and/or kV according to patient size, use of iterative reconstruction technique) TECHNICAL DOCUMENTATION: JOB ID: [id number] 2010 [employer]- All Rights Reserved Reading location - IP/workstation name: [email or web address]
[2019-07-23] MEDS ORDERED: DEXTROSE 50%-WATER 25 GM/50 ML DISP.SYRIN IV PRN ×2 (17:16)
[2019-07-23] MEDS ORDERED: ACETAMINOPHEN 325 MG TABLET PO PRN (17:16)
[2019-07-23] MEDS ORDERED: DEXTROSE 40% GEL 15 GM TUBE PO PRN ×2 (17:16)
[2019-07-23] MEDS ORDERED: IPRATROPIUM/ALBUTEROL 0.5-2.5 MG/3 ML AMPUL NEB PRN (17:16)
[2019-07-23] MEDS ORDERED: GLUCAGON,HUMAN RECOMB 1 MG INJ SUBCUT PRN (17:16)
[2019-07-23] MEDS ORDERED: MAGNESIUM HYDROXIDE SUSP 30 ML UDCUP PO PRN (17:25)
[2019-07-23] MEDS ORDERED: NICOTINE 21 MG/24 HR PATCH.TD24 TD ONE (17:48)
--- NOTE | 2019-07-23 17:48 | PDOC H&P ---
History of Present Illness Admission Date/PCP: 07/23/19 17:04 SAMUEL TURNER MD Patient complains of: Patient presents to the emergency room with complaints of abdominal pain which started about 24 to 48 hours ago. This was associated with nausea and vomiting. Patient says that she apparently had been using cocaine as well as heroin. She states that she does not normally uses drugs but was depressed the situation and so did use the drugs. History of Present Illness: LYUDMILA PITT is a 49 year old female Patient presents to the emergency room with complaints of abdominal pain which started about 24 to 48 hours ago. This was associated with nausea and vomiting. Patient says that she apparently had been using cocaine as well as heroin. She states that she does not normally uses drugs but was depressed the situation and so did use the drugs. She said she actually overdosed on opiates about 3 days ago. She was given Narcan at home and slept for about 24 hours and when she woke up she was in pain. She says she normally does use meth but denies regular use of opiates and cocaine. She was writhing in pain and she was found to have a lipase of 16,438 as well as in acute renal failure. He denies any alcohol abuse. She denies any fever cough diaphoresis or any other pertinent symptoms. She gives a history of seizures about 10 years ago, no drug related according to her. She said she had been on Depakote since then. CT scan of the abdomen done reveals diffuse enlargement of the pancreas with no apparent peripancreatic fluid as well as moderate stool and gas throughout the colon which can be seen with constipation. Unfortunately as patient is in acute renal failure the CT was done without contrast. She does have a leukocytosis with a left shift although I see no evidence of an acute infection. Platelet count is within normal urine toxicology is positive for opiates as well as cocaine Past Medical History Cardiac Medical History: Reports: None Denies: Coronary Artery Disease, Myocardial Infarction, Hypertension Pulmonary Medical History: Reports: Asthma, Bronchitis, Chronic Obstructive Pulmonary Disease (COPD) Denies: Pneumonia EENT Medical History: Reports: None Neurological Medical History: Reports: Migraine, Seizures Endocrine Medical History: Reports: None Renal/ Medical History: Reports: None Malignancy Medical History: Reports: None GI Medical History: Reports: None Musculoskeltal Medical History: Reports: Arthritis Skin Medical History: Reports: None Psychiatric Medical History: Reports: Bipolar Disorder Traumatic Medical History: Reports: None Hematology: Denies: Anemia Infectious Medical History: Reports: None Past Surgical History Past Surgical History: Reports: Hysterectomy - PARTIAL, Mastectomy - breast lump removed Denies: Pacemaker Social History Information Source: Patient Lives with: Spouse/Significant other Smoking Status: Current Every Day Smoker Electronic Cigarette use?: No Drugs: Cocaine, Heroin, Marijuana Hx Prescription Drug Abuse: No - Advance Directive Resuscitation Status: Full Code Family History Family History: Reviewed & Not Pertinent Parental Family History Reviewed: Yes Children Family History Reviewed: Yes Sibling(s) Family History Reviewed.: Yes Medication/Allergy Home Medications: Divalproex Sodium [Depakote Er 500 Mg Tab.Sr] 1,000 mg PO 02/21/11 Gabapentin 600 mg PO TID 07/23/19 Allergies/Adverse Reactions: doxycycline [Doxycycline] Allergy (Mild, Verified 07/23/19 14:47) rash povidone-iodine [From Betadine] Allergy (Verified 07/23/19 14:47) soap [From Betadine] Allergy (Verified 07/23/19 14:47) tramadol [From Ultram] Allergy (Verified 07/23/19 14:47) tramadol HCl [From Ultram] Allergy (Verified 07/23/19 14:47) Review of Systems All systems: reviewed and no additional remarkable complaints except as stated Constitutional: ABSENT: fever(s), weakness Eyes: ABSENT: visual disturbances Nose, Mouth, and Throat: ABSENT: sore throat Cardiovascular: ABSENT: chest pain, orthropnea, palpitations Respiratory: ABSENT: cough, hemoptysis Genitourinary: ABSENT: dysuria, hematuria Neurological: ABSENT: abnormal movements, abnormal speech, confusion, convulsions, weakness Endocrine: ABSENT: cold intolerance, heat intolerance, polydipsia, polyuria Physical Exam Vital Signs: Temp Pulse Resp BP Pulse Ox 98.0 F 109 H 17 126/114 H 94 07/23/19 16:33 07/23/19 14:43 07/23/19 16:34 07/23/19 16:33 07/23/19 16:34 Intake & Output 07/22/19 07/23/19 07/24/19 06:59 06:59 06:59 Weight 46.4 kg General appearance: PRESENT: no acute distress, thin, other - Crying holding her abdomen Head exam: PRESENT: atraumatic, normocephalic Eye exam: PRESENT: conjunctiva pink, EOMI. ABSENT: scleral icterus Mouth exam: PRESENT: tongue midline Neck exam: ABSENT: carotid bruit, JVD, lymphadenopathy, thyromegaly Respiratory exam: PRESENT: clear to auscultation flash, unlabored. ABSENT: rales, rhonchi, wheezes Cardiovascular exam: PRESENT: +S1, +S2, tachycardia. ABSENT: diastolic murmur, rubs, systolic murmur Pulses: PRESENT: normal dorsalis pedis pul Vascular exam: PRESENT: normal capillary refill GI/Abdominal exam: PRESENT: normal bowel sounds, soft, tenderness - Right upper quadrant appears to be more tender Right costovertebral angle tenderness. ABSENT: distended, guarding, mass, organolmegaly, rebound Rectal exam: PRESENT: deferred Extremities exam: PRESENT: full ROM. ABSENT: calf tenderness, clubbing, pedal edema Neurological exam: PRESENT: alert, awake, oriented to person, oriented to place, oriented to time, oriented to situation, CN II-XII grossly intact. ABSENT: motor sensory deficit Psychiatric exam: PRESENT: appropriate affect, normal mood. ABSENT: homicidal ideation, suicidal ideation Skin exam: PRESENT: dry, intact, warm. ABSENT: cyanosis, rash Results Laboratory Results: 07/23/19 14:54 07/23/19 14:54 07/23/19 07/23/19 07/23/19 14:54 14:54 14:54 WBC 15.7 H RBC 4.18 Hgb 14.2 Hct 40.5 MCV 97 MCH 33.9 H MCHC 35.0 RDW 13.4 Plt Count 327 Seg Neutrophils % 89.8 H Sodium 135.7 L Potassium 4.8 Chloride 103 Carbon Dioxide 25 Anion Gap 8 BUN 45 H Creatinine 2.31 H Est GFR ( Amer) 27 L Glucose 131 H Calcium 8.6 Total Bilirubin 0.3 AST 80 H Alkaline Phosphatase 88 Total Protein 6.8 Albumin 3.8 Lipase 86194.5 H Serum HCG, Qual NEGATIVE Urine Color Urine Appearance Urine pH Ur Specific [place] Urine Protein Urine Glucose (UA) Urine Ketones Urine Blood Urine RBC (Auto) 07/23/19 14:54 WBC RBC Hgb Hct MCV MCH MCHC RDW Plt Count Seg Neutrophils % Sodium Potassium Chloride Carbon Dioxide Anion Gap BUN Creatinine Est GFR ( Amer) Glucose Calcium Total Bilirubin AST Alkaline Phosphatase Total Protein Albumin Lipase Serum HCG, Qual Urine Color YELLOW Urine Appearance CLOUDY Urine pH 5.0 Ur Specific [place] 1.013 Urine Protein 30 H Urine Glucose (UA) NEGATIVE Urine Ketones NEGATIVE Urine Blood LARGE H Urine RBC (Auto) 4 Impressions: Abdomen/Pelvis CT 07/23/19 16:34 IMPRESSION: 1. Beam hardening artifact from the left posterior flank battery pack obscures some detail in the mid abdomen. There appears to be diffuse enlargement of the pancreas with no peripancreatic fluid. Finding could be seen with early acute pancreatitis. Clinical correlation. 2. Moderate stool and gas throughout the colon which can be seen with constipation. No bowel obstruction. Assessment and Plan - Diagnosis (1) Acute pancreatitis Qualifiers: Pancreatitis type: drug induced Is this a current diagnosis for this admission?: Yes Plan: Patient will be made n.p.o. She will be placed on PPI empirically. I will continue with IV fluid hydration and judicious pain management. Will consider obtaining an abdominal sonogram although CT scan showed no evidence of cholecystitis. (2) Acute kidney injury Is this a current diagnosis for this admission?: Yes Plan: Likely multifactorial including ATN and drug-induced. We will give judicious IV fluids and will obtain sonogram of the kidneys once patient is stable. (3) SIRS (systemic inflammatory response syndrome) Is this a current diagnosis for this admission?: Yes Plan: Patient has tachycardia, leukocytosis and acute pancreatitis. I see no evidence of an acute infection at this time and will defer starting on any antibiotic however we will keep a close eye on it and if needed she will be started on empiric antibiotics (4) Polysubstance dependence including opioid type drug, episodic abuse Is this a current diagnosis for this admission?: Yes Plan: We will monitor for evidence of withdrawal syndrome. She denies any alcohol use and her drug screen does reflect that. She does smoke about a pack to pack and a half daily and should be placed on nicotine patch - Time Time Spent with patient: 35 or more minutes Smoking Cessation Education: 3 to 10 minutes Anticipated discharge: Home Within: within 72 hours - Inpatient Certification Based on my medical assessment, after consideration of the patient's comorbidities, presenting symptoms, or acuity I expect that the services needed warrant INPATIENT care.: Yes Medical Necessity: Need Close Monitoring Due to Risk of Patient Decompensation, Risk of Complication if Not Cared For in Hospital
[2019-07-23] MEDS: MORPHINE SULFATE 10 MG/ML INJ IV PRN ×2 (17:54→21:58)
[2019-07-23] MEDS: FAMOTIDINE INJ/PF 20 MG/2 ML SDV IV SCH (21:58)
[2019-07-23] MEDS: DEXTROSE 5%-NORMAL SALINE 1,000 ML IV PRN (21:59)
[2019-07-23] MEDS: TEMAZEPAM 15 MG CAPSULE PO PRN (21:59)
[2019-07-23] MEDS: ONDANSETRON HCL INJ/PF 4 MG/2 ML SDV IV PRN (21:59)
[2019-07-24] MEDS: OXYCODONE-ACETAMINOPHEN 5-325 MG TABLET PO PRN ×3 (00:12→16:36)
[2019-07-24] MEDS: MORPHINE SULFATE 10 MG/ML INJ IV PRN ×5 (03:42→21:42)
[2019-07-24] MEDS: ONDANSETRON HCL INJ/PF 4 MG/2 ML SDV IV PRN (04:38)
[2019-07-24] MEDS: DIAZEPAM INJ 10 MG/2 ML DISP.SYRIN IV PRN ×2 (04:38→16:43)
[2019-07-24 05:16] LABS: ABSOLUTE LYMPHOCYTES (AUTO) 1.3 10^3/uL (0.5-4.7); ABSOLUTE MONOCYTES (AUTO) 0.7 10^3/uL (0.1-1.4); ABSOLUTE NEUT (AUTO) 13.5 10^3/uL (1.7-8.2); BASOPHILS % (AUTO) 0.1 % (0-2); EOSINOPHILS % (AUTO) 0.1 % (0-6); HEMATOCRIT 37.8 % (36.0-47.0); HEMOGLOBIN 13.1 g/dL (12.0-15.5); LYMPHOCYTES % (AUTO) 8.2 % (13-45); MEAN CORPUSCULAR HEMOGLOBIN 33.2 pg (27.0-33.4); MEAN CORPUSCULAR HGB CONC 34.6 g/dL (32.0-36.0); MEAN CORPUSCULAR VOLUME 96 fl (80-97); MONOCYTES % (AUTO) 4.5 % (3-13); PLATELET COUNT 190 10^3/uL (150-450); RED BLOOD COUNT 3.94 10^6/uL (3.72-5.28); RED CELL DISTRIBUTION WIDTH 13.4 % (11.5-14.0); SEGMENTED NEUTROPHILS % (AUTO) 87.1 % (42-78); TOTAL CELLS COUNTED % (AUTO) 100 %; WHITE BLOOD COUNT 15.5 10^3/uL (4.0-10.5)
[2019-07-24 05:41] LABS: ALBUMIN 2.9 g/dL (3.5-5.0); ALKALINE PHOSPHATASE 89 U/L (38-126); ASPARTATE AMINO TRANSFERASE 71 U/L (14-36); BILIRUBIN,DIRECT 0.2 mg/dL (0.0-0.4); BILIRUBIN,TOTAL 0.2 mg/dL (0.2-1.3); BLOOD UREA NITROGEN 31 mg/dL (7-20); GLUCOSE 109 mg/dL (75-110); POTASSIUM 4.3 mmol/L (3.6-5.0); TOTAL PROTEIN 5.8 g/dL (6.3-8.2)
[2019-07-24 05:46] LABS: CARBON DIOXIDE 26 mmol/L (22-30); CHLORIDE 109 mmol/L (98-107)
[2019-07-24 05:53] LABS: ANION GAP 4 (5-19)
[2019-07-24] MEDS: GUAIFENESIN SYRP 200 MG/10 ML UDC PO PRN ×2 (06:00→11:55)
[2019-07-24] MEDS: DEXTROSE 5%-NORMAL SALINE 1,000 ML IV PRN ×2 (09:00→17:25)
[2019-07-24] MEDS: FAMOTIDINE INJ/PF 20 MG/2 ML SDV IV SCH ×2 (10:24→21:40)
[2019-07-24] MEDS: ENOXAPARIN SODIUM INJ 30 MG/0.3 ML DISP.SYRIN SUBCUT SCH (10:24)
--- NOTE | 2019-07-24 11:48 | PDOC PROGRESS REPORT ---
Subjective Progress Note for:: 07/24/19 Subjective:: Patient still complaining of abdominal pain, cough Reason For Visit: ACUTE PANCREATITIS, SIRS, SHELTON Physical Exam Vital Signs: Temp Pulse Resp BP Pulse Ox 98.1 F 98 20 113/68 99 07/24/19 07:34 07/24/19 08:00 07/24/19 08:00 07/24/19 07:34 07/24/19 08:00 Intake & Output 07/23/19 07/24/19 07/25/19 06:59 06:59 06:59 Intake Total 3000 Balance 3000 Weight 51.4 kg General appearance: PRESENT: no acute distress, thin Head exam: PRESENT: atraumatic Eye exam: PRESENT: conjunctiva pink, EOMI, PERRLA. ABSENT: scleral icterus Ear exam: PRESENT: normal external ear exam Mouth exam: PRESENT: tongue midline Neck exam: ABSENT: carotid bruit, JVD, lymphadenopathy, thyromegaly Respiratory exam: PRESENT: clear to auscultation flash, unlabored. ABSENT: rales, rhonchi, wheezes Cardiovascular exam: PRESENT: RRR, +S1, +S2. ABSENT: diastolic murmur, rubs, systolic murmur Pulses: PRESENT: normal dorsalis pedis pul Vascular exam: PRESENT: normal capillary refill GI/Abdominal exam: PRESENT: normal bowel sounds, soft, tenderness - Left and right upper quadrant, positive costovertebral angle tenderness. ABSENT: distended, guarding, mass, organolmegaly, rebound Rectal exam: PRESENT: deferred Extremities exam: PRESENT: full ROM. ABSENT: calf tenderness, clubbing, pedal edema Neurological exam: PRESENT: alert, awake, oriented to person, oriented to place, oriented to time, oriented to situation, CN II-XII grossly intact. ABSENT: motor sensory deficit Psychiatric exam: PRESENT: anxious. ABSENT: homicidal ideation, suicidal ideation Skin exam: PRESENT: dry, intact, warm. ABSENT: cyanosis, rash Results Laboratory Results: 07/24/19 05:00 07/24/19 05:00 07/23/19 07/23/19 07/23/19 14:54 14:54 14:54 WBC 15.7 H RBC 4.18 Hgb 14.2 Hct 40.5 MCV 97 MCH 33.9 H MCHC 35.0 RDW 13.4 Plt Count 327 Seg Neutrophils % 89.8 H Sodium 135.7 L Potassium 4.8 Chloride 103 Carbon Dioxide 25 Anion Gap 8 BUN 45 H Creatinine 2.31 H Est GFR ( Amer) 27 L Glucose 131 H Calcium 8.6 Total Bilirubin 0.3 AST 80 H Alkaline Phosphatase 88 Total Protein 6.8 Albumin 3.8 Lipase 04566.5 H Serum HCG, Qual NEGATIVE Urine Color Urine Appearance Urine pH Ur Specific [place] Urine Protein Urine Glucose (UA) Urine Ketones Urine Blood Urine RBC (Auto) 07/23/19 07/24/19 07/24/19 14:54 05:00 05:00 WBC 15.5 H RBC 3.94 Hgb 13.1 Hct 37.8 MCV 96 MCH 33.2 MCHC 34.6 RDW 13.4 Plt Count 190 Seg Neutrophils % 87.1 H Sodium 138.5 Potassium 4.3 Chloride 109 H Carbon Dioxide 26 Anion Gap 4 L BUN 31 H Creatinine 1.31 H Est GFR ( Amer) 52 L Glucose 109 Calcium 8.0 L Total Bilirubin 0.2 AST 71 H Alkaline Phosphatase 89 Total Protein 5.8 L Albumin 2.9 L Lipase 6251.8 H Serum HCG, Qual Urine Color YELLOW Urine Appearance CLOUDY Urine pH 5.0 Ur Specific [place] 1.013 Urine Protein 30 H Urine Glucose (UA) NEGATIVE Urine Ketones NEGATIVE Urine Blood LARGE H Urine RBC (Auto) 4 Impressions: Abdomen/Pelvis CT 07/23/19 16:34 IMPRESSION: 1. Beam hardening artifact from the left posterior flank battery pack obscures some detail in the mid abdomen. There appears to be diffuse enlargement of the pancreas with no peripancreatic fluid. Finding could be seen with early acute pancreatitis. Clinical correlation. 2. Moderate stool and gas throughout the colon which can be seen with constipation. No bowel obstruction. Assessment and Plan - Diagnosis (1) Acute pancreatitis Qualifiers: Pancreatitis type: drug induced Is this a current diagnosis for this admission?: Yes Plan: Lipase proved now down to 6200. We will continue with n.p.o., bowel rest and IV fluids. I will go ahead and obtain a sonogram as patient continues to complain of right-sided upper quadrant pain. No evidence of cholecystitis was seen on the CAT scan but for better visualization will obtain a sonogram (2) Acute kidney injury Is this a current diagnosis for this admission?: Yes Plan: Kidney function improved. We will continue with judicious IV fluids (3) SIRS (systemic inflammatory response syndrome) Is this a current diagnosis for this admission?: Yes Plan: Her white count is still elevated which could be an inflammatory reaction however patient also has a cough with a somewhat yellowish sputum. I will obtain a chest x-ray. She will be placed on IV antibiotics. (4) Polysubstance dependence including opioid type drug, episodic abuse Is this a current diagnosis for this admission?: Yes Plan: We will monitor for evidence of withdrawal syndrome. She denies any alcohol use and her drug screen does reflect that. She does smoke about a pack to pack and a half daily and should be placed on nicotine patch
--- NOTE | 2019-07-24 12:35 | RADIOLOGY REPORT (SQ) ---
EXAM DESCRIPTION: CHEST 2 VIEWS IMAGES COMPLETED DATE/TIME: 07/24/2019 12:18 pm REASON FOR STUDY: Cough COMPARISON: 01/21/2019 EXAM PARAMETERS: NUMBER OF VIEWS: two views TECHNIQUE: Digital Frontal and Lateral radiographic views of the chest acquired. RADIATION DOSE: NA LIMITATIONS: none FINDINGS: LUNGS AND PLEURA: Mild ill-defined bibasilar opacities, left greater than right. No pleur al effusion. No pneumothorax. Increased AP diameter. MEDIASTINUM AND HILAR STRUCTURES: No masses or contour abnormalities. HEART AND VASCULAR STRUCTURES: Heart normal size. No evidence for failure. BONES: No acute findings. HARDWARE: Spinal stimulator hardware with leads overlying cervical spine. OTHER: No other significant finding. IMPRESSION: Mild ill-defined bibasilar opacities possibly atelectasis or pneumonia. TECHNICAL DOCUMENTATION: JOB ID: [id number] 2010 [employer]- All Rights Reserved Reading location - IP/workstation name: [email or web address]
--- NOTE | 2019-07-24 13:06 | RADIOLOGY REPORT (SQ) ---
EXAM DESCRIPTION: U/S ABDOMEN COMPLETE W/DOPPLER IMAGES COMPLETED DATE/TIME: 07/24/2019 12:55 pm REASON FOR STUDY: Pancreatitis, persistent abdominal Pain COMPARISON: 07/23/2019 TECHNIQUE: Dynamic and static grayscale images acquired of the abdomen and recorded on PACS. Additio nal selected color Doppler and spectral images recorded. Note: Study does not meet criteria for complete doppler/duplex scan LIMITATIONS: None. FINDINGS: PANCREAS: No masses. Visualized pancreatic duct normal caliber. LIVER: No masses. Echotexture normal. LIVER VASCULATURE: Normal directional flow of the main portal vein and hepatic veins. GALLBLADDER: No stones. Normal wall thickness. No pericholecystic fluid. ULTRASOUND-DETECTED JC'S SIGN: Negative. INTRAHEPATIC DUCTS AND COMMON DUCT: CBD and intrahepatic ducts normal caliber. No filling defects. INFERIOR VENA CAVA: Normal flow. AORTA: No aneurysm. RIGHT KIDNEY: Normal in size measuring 9.0 cm. Normal echogenicity. No solid or suspicious stella s. No hydronephrosis. No calcifications. LEFT KIDNEY: Normal in size measuring 9.6 cm. Normal echogenicity. No solid or suspicious masses . No hydronephrosis. No calcifications. SPLEEN: Normal in size measuring 9.1 cm. No focal lesions. PERITONEAL AND PLEURAL SPACES: Trace perihepatic ascites. OTHER: No other significant finding. IMPRESSION: Trace perihepatic free fluid. Otherwise, unremarkable abdominal ultrasound as visualized. TECHNICAL DOCUMENTATION: JOB ID: [id number] 2010 [email or web address]- All Rights Reserved Reading location - IP/workstation name: [email or web address]
--- NOTE | 2019-07-24 13:09 | RADIOLOGY REPORT (SQ) ---
EXAM DESCRIPTION: U/S NON OB PEL W/DOPPLER IMAGES COMPLETED DATE/TIME: 07/24/2019 12:55 pm REASON FOR STUDY: Pancreatitis, persistent abdominal Pain COMPARISON: None. TECHNIQUE: Dynamic and static grayscale images acquired of the pelvis via transabdominal approach an d recorded on PACS. Additional selected color Doppler and spectral images recorded. LIMITATIONS: Limited exam secondary to overlying bowel gas. FINDINGS: UTERUS: Status post hysterectomy. ENDOMETRIAL STRIPE: Not applicable CERVIX: No nabothian cysts. RIGHT OVARY AND DOPPLER: Nonvisualized due to overlying bowel gas. LEFT OVARY AND DOPPLER: Nonvisualized due to overlying bowel gas. FREE FLUID: Small volume pelvic ascites. OTHER: No other significant finding. IMPRESSION: Small volume pelvic ascites. Status post hysterectomy. Ovaries nonvisualized. TECHNICAL DOCUMENTATION: JOB ID: [id number] 2010 [employer]- All Rights Reserved Rev-09/06 Reading location - IP/workstation name: [email or web address]
[2019-07-24] MEDS: CEFTRIAXONE 1 GM/D5W RTU 1 GM/50 ML RTUPB IV SCH (13:53)
--- NOTE | 2019-07-24 16:08 | EKG REPORT ---
SEVERITY:- OTHERWISE NORMAL ECG - SINUS TACHYCARDIA : Confirmed by: Sanchez Balbuena 24-Jul-2019 16:08:09
--- NOTE | 2019-07-24 16:10 | EKG REPORT ---
SEVERITY:- OTHERWISE NORMAL ECG - SINUS TACHYCARDIA : Confirmed by: Sanchez Balbuena 24-Jul-2019 16:09:30
[2019-07-25] MEDS: MORPHINE SULFATE 10 MG/ML INJ IV PRN ×5 (01:23→20:39)
[2019-07-25] MEDS: DEXTROSE 5%-NORMAL SALINE 1,000 ML IV PRN ×3 (01:31→20:41)
[2019-07-25] MEDS: GUAIFENESIN SYRP 200 MG/10 ML UDC PO PRN ×2 (02:30→10:50)
[2019-07-25] MEDS: OXYCODONE-ACETAMINOPHEN 5-325 MG TABLET PO PRN ×3 (02:30→22:51)
[2019-07-25 05:05] LABS: HEMATOCRIT 37.3 % (36.0-47.0); HEMOGLOBIN 12.7 g/dL (12.0-15.5); MEAN CORPUSCULAR HEMOGLOBIN 32.5 pg (27.0-33.4); MEAN CORPUSCULAR HGB CONC 34.1 g/dL (32.0-36.0); MEAN CORPUSCULAR VOLUME 95 fl (80-97); PLATELET COUNT 182 10^3/uL (150-450); RED BLOOD COUNT 3.91 10^6/uL (3.72-5.28); RED CELL DISTRIBUTION WIDTH 13.1 % (11.5-14.0); WHITE BLOOD COUNT 14.3 10^3/uL (4.0-10.5)
[2019-07-25 05:23] LABS: ABSOLUTE LYMPHOCYTES# (MANUAL) 0.9 10^3/uL (0.5-4.7); ABSOLUTE MONOCYTES # (MANUAL) 0.3 10^3/uL (0.1-1.4); BASOPHILS % (MANUAL) 0 % (0-2); EOSINOPHILS % (MANUAL) 1 % (0-6); LYMPHOCYTES % (MANUAL) 6 % (13-45); MONOCYTES % (MANUAL) 2 % (3-13); SEGMENTED NEUTROPHILS % (MAN) 91 % (42-78); TOTAL CELLS COUNTED 100
[2019-07-25 05:24] LABS: TOXIC GRANULATION 1+; TOXIC VACUOLATION PRESENT
[2019-07-25 05:25] LABS: OVALOCYTES SLIGHT; PLATELET COMMENT ADEQUATE; POIKILOCYTOSIS SLIGHT
[2019-07-25 05:26] LABS: ALBUMIN 2.6 g/dL (3.5-5.0); ALKALINE PHOSPHATASE 93 U/L (38-126); ASPARTATE AMINO TRANSFERASE 38 U/L (14-36); BILIRUBIN,DIRECT 0.2 mg/dL (0.0-0.4); BILIRUBIN,TOTAL 0.4 mg/dL (0.2-1.3); BLOOD UREA NITROGEN 18 mg/dL (7-20); CALCIUM 7.7 mg/dL (8.4-10.2); GLUCOSE 130 mg/dL (75-110); POTASSIUM 4.3 mmol/L (3.6-5.0)
[2019-07-25 05:31] LABS: CARBON DIOXIDE 25 mmol/L (22-30); CHLORIDE 111 mmol/L (98-107)
[2019-07-25 05:39] LABS: ANION GAP 2 (5-19)
[2019-07-25] MEDS: ENOXAPARIN SODIUM INJ 30 MG/0.3 ML DISP.SYRIN SUBCUT SCH (10:50)
[2019-07-25] MEDS: FAMOTIDINE INJ/PF 20 MG/2 ML SDV IV SCH ×2 (10:50→22:51)
[2019-07-25] MEDS: CEFTRIAXONE 1 GM/D5W RTU 1 GM/50 ML RTUPB IV SCH (13:01)
[2019-07-25] MEDS: DIAZEPAM INJ 10 MG/2 ML DISP.SYRIN IV PRN (14:09)
--- NOTE | 2019-07-25 15:41 | PDOC PROGRESS REPORT ---
Subjective Progress Note for:: 07/25/19 Subjective:: Patient still complaining of abdominal pain, cough however she does admit to feeling better Reason For Visit: ACUTE PANCREATITIS, SIRS, SHELTON Physical Exam Vital Signs: Temp Pulse Resp BP Pulse Ox 98.0 F 104 H 18 122/68 99 07/25/19 07:34 07/25/19 14:00 07/25/19 07:34 07/25/19 07:34 07/25/19 07:34 Intake & Output 07/24/19 07/25/19 07/26/19 06:59 06:59 06:59 Intake Total 3000 2050 1050 Output Total 100 Balance 3000 1950 1050 Weight 51.4 kg 50.5 kg General appearance: PRESENT: no acute distress, cooperative Head exam: PRESENT: atraumatic, normocephalic Eye exam: PRESENT: EOMI, PERRLA. ABSENT: scleral icterus Ear exam: PRESENT: normal external ear exam Mouth exam: PRESENT: tongue midline Teeth exam: PRESENT: poor dentation Neck exam: ABSENT: carotid bruit, JVD, lymphadenopathy, thyromegaly Respiratory exam: PRESENT: crackles, rhonchi, unlabored. ABSENT: rales, wheezes Cardiovascular exam: PRESENT: RRR. ABSENT: diastolic murmur, rubs, systolic murmur Pulses: PRESENT: normal dorsalis pedis pul Vascular exam: PRESENT: normal capillary refill GI/Abdominal exam: PRESENT: normal bowel sounds, soft. ABSENT: distended, g uarding, mass, organolmegaly, rebound, tenderness Rectal exam: PRESENT: deferred Extremities exam: PRESENT: full ROM. ABSENT: calf tenderness, clubbing, pedal edema Musculoskeletal exam: PRESENT: ambulatory Neurological exam: PRESENT: alert, awake, oriented to person, oriented to place, oriented to time, oriented to situation, CN II-XII grossly intact. ABSENT: motor sensory deficit Psychiatric exam: PRESENT: anxious. ABSENT: homicidal ideation, suicidal ideation Skin exam: PRESENT: dry, intact, warm. ABSENT: cyanosis, rash Results Laboratory Results: 07/25/19 04:54 07/25/19 04:54 07/25/19 07/25/19 04:54 04:54 WBC 14.3 H RBC 3.91 Hgb 12.7 Hct 37.3 MCV 95 MCH 32.5 MCHC 34.1 RDW 13.1 Plt Count 182 Seg Neutrophils % Not Reportable Sodium 137.8 Potassium 4.3 Chloride 111 H Carbon Dioxide 25 Anion Gap 2 L BUN 18 Creatinine 0.74 Est GFR ( Amer) > 60 Glucose 130 H Calcium 7.7 L Magnesium 2.3 Total Bilirubin 0.4 AST 38 H Alkaline Phosphatase 93 Total Protein 5.0 L Albumin 2.6 L Lipase 2112.1 H Impressions: Abdomen/Pelvis CT 07/23/19 16:34 IMPRESSION: 1. Beam hardening artifact from the left posterior flank battery pack obscures some detail in the mid abdomen. There appears to be diffuse enlargement of the pancreas with no peripancreatic fluid. Finding could be seen with early acute pancreatitis. Clinical correlation. 2. Moderate stool and gas throughout the colon which can be seen with constipation. No bowel obstruction. Abdomen Ultrasound 07/24/19 00:00 IMPRESSION: Trace perihepatic free fluid. Otherwise, unremarkable abdominal ultrasound as visualized. Chest X-Ray 07/24/19 00:00 IMPRESSION: Mild ill-defined bibasilar opacities possibly atelectasis or pneumonia. Pelvis Ultrasound 07/24/19 00:00 IMPRESSION: Small volume pelvic ascites. Status post hysterectomy. Ovaries nonvisualized. Assessment and Plan - Diagnosis (1) Acute pancreatitis Qualifiers: Pancreatitis type: drug induced Is this a current diagnosis for this admission?: Yes Plan: Lipase proved now down to 6200. We will continue with n.p.o., bowel rest and IV fluids. I will go ahead and obtain a sonogram as patient continues to complain of right-sided upper quadrant pain. No evidence of cholecystitis was seen on the CAT scan but for better visualization will obtain a sonogram /4 lipase down to 2100. Patient has this abdominal pain. I will start a clear liquid diet and monitor (2) Acute kidney injury Is this a current diagnosis for this admission?: Yes Plan: Kidney function recovered we will continue with judicious IV fluids (3) SIRS (systemic inflammatory response syndrome) Is this a current diagnosis for this admission?: Yes Plan: Her white count is still elevated which could be an inflammatory reaction however patient also has a cough with a somewhat yellowish sputum. I will obtain a chest x-ray. She will be placed on IV antibiotics. Patient likely had early sepsis secondary to pneumonia. She had leukocytosis as well as acute kidney injury and tachycardia although all this could also be due to her acute pancreatitis but in addition to the pneumonia this could be considered sepsis (4) Polysubstance dependence including opioid type drug, episodic abuse Is this a current diagnosis for this admission?: Yes Plan: Patient has been counseled on the need to abstain from this illicit drug use (5) Pneumonia due to Haemophilus influenzae Qualifiers: Lung location: unspecified part of lung Is this a current diagnosis for this admission?: Yes Plan: Sputum culture yielding haemophilus Alfaro as well as gram-positive cocci. We will continue with ceftriaxone day 2. Patient does appear to be clinically improved - Time Time Spent with patient: 25-34 minutes
[2019-07-25] MEDS ORDERED: CHLORPROMAZINE HCL INJ 25 MG/1 ML AMPULE ONE (20:43)
[2019-07-25] MEDS: CHLORPROMAZINE HCL INJ 25 MG/1 ML AMPULE IV PRN (20:47)
[2019-07-26] MEDS: MORPHINE SULFATE 10 MG/ML INJ IV PRN ×5 (04:27→19:33)
[2019-07-26] MEDS: DEXTROSE 5%-NORMAL SALINE 1,000 ML IV PRN ×3 (04:43→21:43)
[2019-07-26 05:11] LABS: ABSOLUTE EOSINOPHILS # (AUTO) 0.1 10^3/uL (0.0-0.6); ABSOLUTE LYMPHOCYTES (AUTO) 1.1 10^3/uL (0.5-4.7); ABSOLUTE MONOCYTES (AUTO) 1.1 10^3/uL (0.1-1.4); ABSOLUTE NEUT (AUTO) 9.9 10^3/uL (1.7-8.2); BASOPHILS % (AUTO) 0.2 % (0-2); EOSINOPHILS % (AUTO) 0.9 % (0-6); HEMATOCRIT 34.6 % (36.0-47.0); MEAN CORPUSCULAR HEMOGLOBIN 33.2 pg (27.0-33.4); MEAN CORPUSCULAR HGB CONC 34.6 g/dL (32.0-36.0); MEAN CORPUSCULAR VOLUME 96 fl (80-97); MONOCYTES % (AUTO) 9.2 % (3-13); PLATELET COUNT 123 10^3/uL (150-450); RED CELL DISTRIBUTION WIDTH 13.2 % (11.5-14.0); SEGMENTED NEUTROPHILS % (AUTO) 80.7 % (42-78); TOTAL CELLS COUNTED % (AUTO) 100 %; WHITE BLOOD COUNT 12.3 10^3/uL (4.0-10.5)
[2019-07-26 05:28] LABS: ALBUMIN 2.5 g/dL (3.5-5.0); ALKALINE PHOSPHATASE 102 U/L (38-126); ANION GAP 5 (5-19); ASPARTATE AMINO TRANSFERASE 24 U/L (14-36); BILIRUBIN,DIRECT 0.1 mg/dL (0.0-0.4); BILIRUBIN,TOTAL 0.4 mg/dL (0.2-1.3); BLOOD UREA NITROGEN 9 mg/dL (7-20); CALCIUM 7.8 mg/dL (8.4-10.2); CARBON DIOXIDE 22 mmol/L (22-30); CHLORIDE 110 mmol/L (98-107); GLUCOSE 96 mg/dL (75-110); POTASSIUM 3.5 mmol/L (3.6-5.0); TOTAL PROTEIN 4.8 g/dL (6.3-8.2)
[2019-07-26] MEDS ORDERED: VANCOMYCIN HCL 0 MG in DEXTROSE 5%-WATER 250 ML IV NR (08:15)
[2019-07-26] MEDS ORDERED: POTASSIUM CHLORIDE 10 MEQ TABLET.ER PO ONE (09:00)
--- NOTE | 2019-07-26 09:50 | RADIOLOGY REPORT (SQ) ---
EXAM DESCRIPTION: ABDOMEN 2 VIEWS IMAGES COMPLETED DATE/TIME: 07/26/2019 9:21 am REASON FOR STUDY: Persistent abdominal pain COMPARISON: CT abdomen pelvis 07/23/2019 NUMBER OF VIEWS: Two views. TECHNIQUE: Supine and erect radiographic images of the abdomen acquired. LIMITATIONS: None. FINDINGS: FREE AIR: None. No abnormal gas collections. LUNG BASES: Since CT abdomen pelvis 07/23/2019, patient has developed a small left pleural effusion vesta nting the lateral costophrenic sulcus. Minimal lateral basilar airspace is present. BOWEL GAS PATTERN: Large amount of stool in the ascending and transverse colon. Rectosigmoid air earl ble. This is similar compared to CT 07/23/2019. Stomach, small bowel are decompressed. CALCIFICATIONS: No suspicious calcifications. SOFT TISSUES: No gross mass or suggestion of organomegaly. HARDWARE: Battery pack for neurostimulator over thoracic spine BONES: No acute fracture. No worrisome bone lesions. OTHER: No other significant finding. IMPRESSION: Development of left trace pleural effusion and basilar airspace disease compared to 2019 Persistent diffuse distention of the colon with gas and stool similar compared to CT 07/23/2019. TECHNICAL DOCUMENTATION: JOB ID: [id number] 2010 [email or web address]- All Rights Reserved Reading location - IP/workstation name: [email or web address]
[2019-07-26] MEDS: ENOXAPARIN SODIUM INJ 30 MG/0.3 ML DISP.SYRIN SUBCUT SCH (10:31)
[2019-07-26] MEDS: FAMOTIDINE INJ/PF 20 MG/2 ML SDV IV SCH ×2 (10:36→21:39)
--- NOTE | 2019-07-26 11:26 | PDOC PROGRESS REPORT ---
Subjective Progress Note for:: 07/26/19 Subjective:: Patient still complaining of abdominal pain, cough however she does admit to feeling better 4/5 abdomen noted to be distended. Patient still complaining of tenderness. She was started on a clear liquid diet yesterday but was unable to tolerate it so this was stopped. Her lipase is down to 300 from a high of 16,000. Reason For Visit: ACUTE PANCREATITIS, SIRS, SHELTON Physical Exam Vital Signs: Temp Pulse Resp BP Pulse Ox 98.4 F 105 H 18 141/73 H 99 07/26/19 09:13 07/26/19 09:13 07/26/19 09:13 07/26/19 09:13 07/26/19 09:13 Intake & Output 07/25/19 07/26/19 07/27/19 06:59 06:59 06:59 Intake Total 2050 3332 Output Total 100 800 Balance 1950 2532 Weight 50.5 kg 51.6 kg General appearance: PRESENT: no acute distress, thin Head exam: PRESENT: atraumatic, normocephalic Eye exam: PRESENT: EOMI, PERRLA. ABSENT: scleral icterus Mouth exam: PRESENT: tongue midline Neck exam: ABSENT: carotid bruit, JVD, lymphadenopathy, thyromegaly Respiratory exam: PRESENT: crackles, rales, rhonchi, unlabored. ABSENT: wheezes Cardiovascular exam: PRESENT: RRR, +S1, +S2. ABSENT: diastolic murmur, rubs, systolic murmur Pulses: PRESENT: normal dorsalis pedis pul GI/Abdominal exam: PRESENT: distended, hypoactive bowel sounds, tenderness, other - Tympanic generalized mild tenderness. ABSENT: guarding, mass, orga nolmegaly, rebound Rectal exam: PRESENT: deferred Extremities exam: PRESENT: full ROM. ABSENT: calf tenderness, clubbing, pedal edema Neurological exam: PRESENT: alert, awake, oriented to person, oriented to place, oriented to time, oriented to situation, CN II-XII grossly intact. ABSENT: motor sensory deficit Psychiatric exam: PRESENT: appropriate affect, normal mood. ABSENT: homicidal ideation, suicidal ideation Skin exam: PRESENT: dry, intact, warm. ABSENT: cyanosis, rash Results Laboratory Results: 07/26/19 04:45 07/26/19 04:45 07/26/19 07/26/19 04:45 04:45 WBC 12.3 H RBC 3.60 L Hgb 12.0 Hct 34.6 L MCV 96 MCH 33.2 MCHC 34.6 RDW 13.2 Plt Count 123 L Seg Neutrophils % 80.7 H Sodium 137.3 Potassium 3.5 L Chloride 110 H Carbon Dioxide 22 Anion Gap 5 BUN 9 Creatinine 0.59 Est GFR ( Amer) > 60 Glucose 96 Calcium 7.8 L Total Bilirubin 0.4 AST 24 Alkaline Phosphatase 102 Total Protein 4.8 L Albumin 2.5 L Lipase 358.4 H Impressions: Abdomen/Pelvis CT 07/23/19 16:34 IMPRESSION: 1. Beam hardening artifact from the left posterior flank battery pack obscures some detail in the mid abdomen. There appears to be diffuse enlargement of the pancreas with no peripancreatic fluid. Finding could be seen with early acute pancreatitis. Clinical correlation. 2. Moderate stool and gas throughout the colon which can be seen with constipation. No bowel obstruction. Abdomen Ultrasound 07/24/19 00:00 IMPRESSION: Trace perihepatic free fluid. Otherwise, unremarkable abdominal ultrasound as visualized. Chest X-Ray 07/24/19 00:00 IMPRESSION: Mild ill-defined bibasilar opacities possibly atelectasis or pneumonia. Pelvis Ultrasound 07/24/19 00:00 IMPRESSION: Small volume pelvic ascites. Status post hysterectomy. Ovaries nonvisualized. Abdomen X-Ray 07/26/19 00:00 IMPRESSION: Development of left trace pleural effusion and basilar airspace disease compared to 07/23/2019 Persistent diffuse distention of the colon with gas and stool similar compared to CT 07/23/2019. Assessment and Plan - Diagnosis (1) Acute pancreatitis Qualifiers: Pancreatitis type: drug induced Is this a current diagnosis for this admission?: Yes Plan: Lipase proved now down to 6200. We will continue with n.p.o., bowel rest and IV fluids. I will go ahead and obtain a sonogram as patient continues to complain of right-sided upper quadrant pain. No evidence of cholecystitis was seen on the CAT scan but for better visualization will obtain a sonogram 07/24 lipase down to 2100. Patient has this abdominal pain. I will start a clear liquid diet and monitor 5 improved (2) Acute kidney injury Is this a current diagnosis for this admission?: Yes Plan: Resolved (3) SIRS (systemic inflammatory response syndrome) Is this a current diagnosis for this admission?: Yes (4) Polysubstance dependence including opioid type drug, episodic abuse Is this a current diagnosis for this admission?: Yes (5) Pneumonia due to Haemophilus influenzae Qualifiers: Lung location: unspecified part of lung Is this a current diagnosis for this admission?: Yes - Plan Summary Summary: 07/25 she is also yielded MRSA in her sputum. She has been started on vancomycin in addition to ceftriaxone. Abdominal x-ray was also obtained due to her distended abdomen and this reveals distended bowels. An NG tube will be placed and patient will be continued n.p.o. Pancreatitis does appear to be improving with a lipase down to 358 however patient does have pneumonia. Her bedside index of severe iodine acute pancreatitis is 1 based on sirs criteria. Patient also noted to be thrombocytopenic now with initial platelet count more than 300 and currently about 120. Patient is on enoxaparin 30 mg subcu daily if continues to decline will hold and reassess
[2019-07-26] MEDS: VANCOMYCIN HCL 500 MG in DEXTROSE 5%-WATER 100 ML IV SCH ×2 (11:42→16:59)
--- NOTE | 2019-07-26 12:21 | RADIOLOGY REPORT (SQ) ---
EXAM DESCRIPTION: KUB/ABDOMEN (SINGLE VIEW) IMAGES COMPLETED DATE/TIME: 07/26/2019 11:05 am REASON FOR STUDY: check NG tube placement COMPARISON: Abdominal radiograph same date. CT abdomen and pelvis, 07/23/2019. NUMBER OF VIEWS: One view. TECHNIQUE: Supine radiographic image of the abdomen acquired. LIMITATIONS: None. FINDINGS: BOWEL GAS PATTERN: Normal bowel gas pattern. No dilated loops. CALCIFICATIONS: No suspicious calcifications. SOFT TISSUES: No gross mass or suggestion of organomegaly. HARDWARE: Esophagogastric tube tip and side-hole are below the diaphragm within the stomach. BONES: No acute fracture. No worrisome bone lesions. OTHER: No other significant finding. IMPRESSION: Esophagogastric tube tip and side-hole are below the diaphragm within the stomach. Port TECHNICAL DOCUMENTATION: JOB ID: [id number] 2010 [employer]- All Rights Reserved Reading location - IP/workstation name: [email or web address]
[2019-07-26] MEDS: CEFTRIAXONE 1 GM/D5W RTU 1 GM/50 ML RTUPB IV SCH (13:25)
[2019-07-26] MEDS: DIAZEPAM INJ 10 MG/2 ML DISP.SYRIN IV PRN ×5 (13:48→21:39)
[2019-07-26] MEDS ORDERED: CHLORPROMAZINE HCL INJ 25 MG/1 ML AMPULE ONE (21:44)
[2019-07-26] MEDS: CHLORPROMAZINE HCL INJ 25 MG/1 ML AMPULE IV PRN (21:51)
[2019-07-27] MEDS: DIAZEPAM INJ 10 MG/2 ML DISP.SYRIN IV PRN ×5 (01:04→15:20)
[2019-07-27] MEDS: VANCOMYCIN HCL 500 MG in DEXTROSE 5%-WATER 100 ML IV SCH ×3 (01:05→18:27)
[2019-07-27] MEDS ORDERED: CHLORPROMAZINE HCL INJ 25 MG/1 ML AMPULE ONE (04:16)
[2019-07-27] MEDS: CHLORPROMAZINE HCL INJ 25 MG/1 ML AMPULE IV PRN (04:34)
[2019-07-27] MEDS: DEXTROSE 5%-NORMAL SALINE 1,000 ML IV PRN ×2 (05:45→20:39)
[2019-07-27] MEDS: FAMOTIDINE INJ/PF 20 MG/2 ML SDV IV SCH ×2 (10:44→22:15)
[2019-07-27] MEDS: ENOXAPARIN SODIUM INJ 30 MG/0.3 ML DISP.SYRIN SUBCUT SCH (10:44)
--- NOTE | 2019-07-27 11:03 | PDOC PROGRESS REPORT ---
Subjective Progress Note for:: 07/27/19 Subjective:: Patient still complaining of abdominal pain, cough however she does admit to feeling better 4/5 abdomen noted to be distended. Patient still complaining of tenderness. She was started on a clear liquid diet yesterday but was unable to tolerate it so this was stopped. Her lipase is down to 300 from a high of 16,000. 4/6 Less distended, oven drier tender, labs for today currently pending Reason For Visit: ACUTE PANCREATITIS, SIRS, SHELTON Physical Exam Vital Signs: Temp Pulse Resp BP Pulse Ox 98.5 F 29 L 17 159/85 H 86 L 07/27/19 07:37 07/27/19 07:37 07/27/19 07:37 07/27/19 07:37 07/27/19 07:37 Intake & Output 07/26/19 07/27/19 07/28/19 06:59 06:59 06:59 Intake Total 3332 3350 Output Total 800 3600 Balance 2532 -250 Weight 51.6 kg 49.6 kg General appearance: PRESENT: no acute distress, thin, other - Appears to be malnourished uncomfortable Head exam: PRESENT: atraumatic, normocephalic Eye exam: PRESENT: PERRLA. ABSENT: scleral icterus Ear exam: PRESENT: normal external ear exam Mouth exam: PRESENT: dry mucosa, other - Chapped lips Neck exam: ABSENT: carotid bruit, JVD, lymphadenopathy, thyromegaly Respiratory exam: PRESENT: crackles, rhonchi. ABSENT: rales, wheezes Cardiovascular exam: PRESENT: RRR, +S1, +S2. ABSENT: diastolic murmur, rubs, systolic murmur Pulses: PRESENT: normal dorsalis pedis pul Vascular exam: PRESENT: normal capillary refill GI/Abdominal exam: PRESENT: distended, normal bowel sounds, tenderness. ABSENT: guarding, mass, organolmegaly, rebound Rectal exam: PRESENT: deferred Extremities exam: PRESENT: full ROM. ABSENT: calf tenderness, clubbing, pedal edema Neurological exam: PRESENT: alert, awake, oriented to person, oriented to place, oriented to time, oriented to situation. ABSENT: motor sensory deficit Psychiatric exam: ABSENT: homicidal ideation, suicidal ideation Skin exam: PRESENT: dry, intact, warm. ABSENT: cyanosis, rash Results Laboratory Results: 07/26/19 04:45 04/05/20 04:45 07/24/19 10:40 Sputum Gram Stain - Final Impressions: Abdomen/Pelvis CT 07/23/19 16:34 IMPRESSION: 1. Beam hardening artifact from the left posterior flank battery pack obscures some detail in the mid abdomen. There appears to be diffuse enlargement of the pancreas with no peripancreatic fluid. Finding could be seen with early acute pancreatitis. Clinical correlation. 2. Moderate stool and gas throughout the colon which can be seen with constipation. No bowel obstruction. Abdomen Ultrasound 07/24/19 00:00 IMPRESSION: Trace perihepatic free fluid. Otherwise, unremarkable abdominal ultrasound as visualized. Chest X-Ray 07/24/19 00:00 IMPRESSION: Mild ill-defined bibasilar opacities possibly atelectasis or pneumonia. Pelvis Ultrasound 07/24/19 00:00 IMPRESSION: Small volume pelvic ascites. Status post hysterectomy. Ovaries nonvisualized. Abdomen X-Ray 07/26/19 00:00 IMPRESSION: Development of left trace pleural effusion and basilar airspace disease compared to 07/23/2019 Persistent diffuse distention of the colon with gas and stool similar compared to CT 07/23/2019. KUB X-Ray 07/26/19 00:00 IMPRESSION: Esophagogastric tube tip and side-hole are below the diaphragm within the stomach. Port Assessment and Plan - Diagnosis (1) Acute pancreatitis Qualifiers: Pancreatitis type: drug induced Is this a current diagnosis for this admission?: Yes Plan: Lipase proved now down to 6200. We will continue with n.p.o., bowel rest and IV fluids. I will go ahead and obtain a sonogram as patient continues to complain of right-sided upper quadrant pain. No evidence of cholecystitis was seen on the CAT scan but for better visualization will obtain a sonogram 07/24 lipase down to 2100. Patient has this abdominal pain. I will start a clear liquid diet and monitor 07/25 improved July 26 this does seem to be resolving however patient does have an ileus at this time she remains n.p.o. Follow-up lipase level is pending as well as KUB (2) Acute kidney injury Is this a current diagnosis for this admission?: Yes Plan: Resolved (3) SIRS (systemic inflammatory response syndrome) Is this a current diagnosis for this admission?: Yes (4) Polysubstance dependence including opioid type drug, episodic abuse Is this a current diagnosis for this admission?: Yes Plan: Patient has been counseled on the need to abstain from illicit drug use (5) Pneumonia due to Haemophilus influenzae Qualifiers: Lung location: unspecified part of lung Is this a current diagnosis for this admission?: Yes Plan: Sputum culture yielding haemophilus influenza as well as MRSA. She is on vancomycin day 2 and ceftriaxone day 3 (6) Sepsis Qualifiers: Sepsis type: sepsis due to unspecified organism Is this a current diagnosis for this admission?: Yes Plan: Patient likely has sepsis on admission. She was tachycardic and of course had acute pancreatitis but in addition she also has pneumonia with a leukocytosis. She also had acute kidney failure which is resolved however patient remains n.p.o. as she now has ileus. Will increase IV fluids and follow-up on labs today. (7) Cocaine withdrawal Is this a current diagnosis for this admission?: Yes Plan: Patient is currently withdrawing from her cocaine habit. She apparently does crack every day in addition to other unspecified agents. Will place her on Ativan as needed as Valium seems to be working. At this point she does not need any antipsychotics but this may be an option to use. - Plan Summary Summary: 07/25 she is also yielded MRSA in her sputum. She has been started on vancomycin in addition to ceftriaxone. Abdominal x-ray was also obtained due to her distended abdomen and this reveals distended bowels. An NG tube will be placed and patient will be continued n.p.o. Pancreatitis does appear to be improving with a lipase down to 358 however patient does have pneumonia. Her bedside index of severe acute pancreatitis is 1 based on sirs criteria. Patient also noted to be thrombocytopenic now with initial platelet count more than 300 and currently about 120. Patient is on enoxaparin 30 mg subcu daily if continues to decline will hold and reassess - Time Time Spent with patient: 35 or more minutes Medications reviewed and adjusted accordingly: Yes Anticipated discharge: Home
[2019-07-27 11:07] LABS: ABSOLUTE EOSINOPHILS # (AUTO) 0.1 10^3/uL (0.0-0.6); ABSOLUTE LYMPHOCYTES (AUTO) 1.1 10^3/uL (0.5-4.7); ABSOLUTE MONOCYTES (AUTO) 0.9 10^3/uL (0.1-1.4); ABSOLUTE NEUT (AUTO) 6.6 10^3/uL (1.7-8.2); BASOPHILS % (AUTO) 0.4 % (0-2); EOSINOPHILS % (AUTO) 1.4 % (0-6); HEMATOCRIT 33.7 % (36.0-47.0); LYMPHOCYTES % (AUTO) 12.9 % (13-45); MEAN CORPUSCULAR HEMOGLOBIN 33.4 pg (27.0-33.4); MEAN CORPUSCULAR HGB CONC 35.5 g/dL (32.0-36.0); MEAN CORPUSCULAR VOLUME 94 fl (80-97); MONOCYTES % (AUTO) 10.7 % (3-13); PLATELET COUNT 206 10^3/uL (150-450); RED BLOOD COUNT 3.58 10^6/uL (3.72-5.28); SEGMENTED NEUTROPHILS % (AUTO) 74.6 % (42-78); TOTAL CELLS COUNTED % (AUTO) 100 %; WHITE BLOOD COUNT 8.8 10^3/uL (4.0-10.5)
[2019-07-27 11:32] LABS: BLOOD UREA NITROGEN 6 mg/dL (7-20); CARBON DIOXIDE 27 mmol/L (22-30); CHLORIDE 108 mmol/L (98-107); GLUCOSE 99 mg/dL (75-110)
[2019-07-27 11:37] LABS: ANION GAP 4 (5-19); POTASSIUM 2.9 mmol/L (3.6-5.0)
--- NOTE | 2019-07-27 11:43 | RADIOLOGY REPORT (SQ) ---
EXAM DESCRIPTION: KUB/ABDOMEN (SINGLE VIEW) IMAGES COMPLETED DATE/TIME: 07/27/2019 11:26 am REASON FOR STUDY: F/u ileus COMPARISON: 07/26/2019 NUMBER OF VIEWS: One view. TECHNIQUE: Supine radiographic image of the abdomen acquired. LIMITATIONS: None. FINDINGS: BOWEL GAS PATTERN: Gas pattern is nonobstructive. Less stool burden on today's exam. CALCIFICATIONS: No suspicious calcifications. SOFT TISSUES: No gross mass or suggestion of organomegaly. HARDWARE: Battery pack overlies the left mid abdomen. BONES: No acute fracture. No worrisome bone lesions. OTHER: No other significant finding. IMPRESSION: NO RADIOGRAPHIC EVIDENCE FOR ACUTE ABDOMINAL DISEASE. TECHNICAL DOCUMENTATION: JOB ID: [id number] 2010 [employer]- All Rights Reserved Reading location - IP/workstation name: [email or web address]
[2019-07-27] MEDS: POTASSI CL 20 MEQ/50 ML RIDER 20 MEQ/50 ML RTUPB IV SCH ×2 (13:15→15:16)
[2019-07-27] MEDS: CEFTRIAXONE 1 GM/D5W RTU 1 GM/50 ML RTUPB IV SCH (13:15)
[2019-07-27] MEDS: MORPHINE SULFATE 10 MG/ML INJ IV PRN ×2 (13:16→20:47)
--- NOTE | 2019-07-27 18:07 | PSYCHOLOGICAL NOTE ---
Psych Note - Psych Note Date seen by psych provider: 07/27/19 Time seen by psych provider: 15:45 Psych Note: Reason for consult: IVC for substance abuse and threats to leave AMA Patient is a 49-year-old female who presented to ED on July 23, 2019 with concerns with abdominal pain. Per verbal report from nursing staff, patient was recently treated by the health department for gonorrhea. Patient has threatened to leave AMA. Patient was sleeping (clinician observed patient snoring) when clinician entered the room. Patient states she is hospitalized for pancreatitis. When asked what patient understands about her current circumstance patient replied, "it is not good." Patient reports he wanted to leave AMA because "they [nursing staff] are mean to me and they laugh at me." Patient asked "am I going to ?" Clinician responded that per medical staff, if patient left AMA it could be detrimental to her health. Patient states she has no current plan to leave hospital AMA. Patient reports substance use since 1998. Patient reports frequent crack cocaine use. Patient denies use of substances while she has been in the hospital. Patient reports that she has "a bunch" of detox and since abuse treatment. Patient states she is considering substance abuse treatment again, however finances are a concern as she has no insurance. Patient is linked with [facility] for counseling and medication management. Patient is alert and oriented to person, place, time and circumstance. Mood is tearful with congruent affect. Patient denies suicidal and homicidal ideations. Delusions are absent and behavior is congruent with an intact reality based presentation (i.e., organized and linear through processes). There is no observed behavior that suggests patient is responding to internal stimuli. Patient is able to engage in organized, rational thought processes. Patient is able to express needs and wants in a logical manner. Patient was observed appropriately engaging with clinician, able to identify current medications and pharmacy, she is prescribed but not receiving during her hospitalization, answered orientation questions appropriately, and requesting food and drink. Patient denies current auditory and visual hallucinations. Eye contact is appropriate. Conversational speech is within normal rate, tone, and prosody. Intellectual ability appears to be within average range. Attention and concentration are fair Insight, judgment and impulse control are currently fair. Medication recommendations per [facility] contracted psychiatrist Dr. Reinaldo MD are as follows: Discontinue all benzodiazapines Add Haldol 5MG, twice a day to manage withdrawal symptoms Add Cogentin 1MG, daily Add Buspar 5MG, twice a day Add Depakote 500MG, twice a day Add Gabapentin 600MG, every 8 hours Impression/Plan: Patient is cleared from acute psychiatric services. Medication recommendations have been provided. Patient does not meet IVC criteria per [place] GS 122C. Patient has a significant substance abuse history. Patient is alert, oriented, and able to engage with clinician in an organized and linear manner. Patient denies SI/HI. Patient states she wanted to leave AMA because she is hungry, thirsty, and staff was "being mean and laughing" at her. Patient was was encouraged to remain in the hospital to resolve her medical crisis. Patient has not been provided with her home medications of Depakote and Gabapentin while in the hospital; these home medications have been restarted. Nurse was made aware clinician's note had posted and medication recommendations. Dr. Starkey was consulted on the care and management of this patient; attending physician is in agreement with recommendations and disposition.
[2019-07-27 18:35] LABS: VANCOMYCIN,TROUGH 6.8 ug/mL (5.0-20.0)
[2019-07-27] MEDS: ONDANSETRON HCL INJ/PF 4 MG/2 ML SDV IV PRN (20:48)
[2019-07-27] MEDS: TEMAZEPAM 15 MG CAPSULE PO PRN (20:48)
[2019-07-27] MEDS: GUAIFENESIN SYRP 200 MG/10 ML UDC PO PRN (21:15)
[2019-07-27] MEDS: OXYCODONE-ACETAMINOPHEN 5-325 MG TABLET PO PRN (22:10)
[2019-07-27] MEDS: LORAZEPAM 1 MG TABLET PO SCH (22:11)
[2019-07-28] MEDS: VANCOMYCIN HCL 1,000 MG in DEXTROSE 5%-WATER 250 ML IV SCH ×3 (01:44→17:53)
[2019-07-28] MEDS: DIAZEPAM INJ 10 MG/2 ML DISP.SYRIN IV PRN (01:44)
[2019-07-28] MEDS: ONDANSETRON HCL INJ/PF 4 MG/2 ML SDV IV PRN (04:55)
[2019-07-28] MEDS: MORPHINE SULFATE 10 MG/ML INJ IV PRN (04:55)
[2019-07-28] MEDS: LORAZEPAM 1 MG TABLET PO SCH (06:26)
[2019-07-28] MEDS: DEXTROSE 5%-NORMAL SALINE 1,000 ML IV PRN (06:27)
[2019-07-28 06:40] LABS: ABSOLUTE EOSINOPHILS # (AUTO) 0.1 10^3/uL (0.0-0.6); ABSOLUTE LYMPHOCYTES (AUTO) 1.4 10^3/uL (0.5-4.7); ABSOLUTE MONOCYTES (AUTO) 1.1 10^3/uL (0.1-1.4); BASOPHILS % (AUTO) 0.4 % (0-2); EOSINOPHILS % (AUTO) 1.9 % (0-6); HEMATOCRIT 33.7 % (36.0-47.0); HEMOGLOBIN 11.8 g/dL (12.0-15.5); LYMPHOCYTES % (AUTO) 17.9 % (13-45); MEAN CORPUSCULAR HEMOGLOBIN 33.2 pg (27.0-33.4); MEAN CORPUSCULAR HGB CONC 34.9 g/dL (32.0-36.0); MEAN CORPUSCULAR VOLUME 95 fl (80-97); MONOCYTES % (AUTO) 14.7 % (3-13); PLATELET COUNT 113 10^3/uL (150-450); RED BLOOD COUNT 3.55 10^6/uL (3.72-5.28); RED CELL DISTRIBUTION WIDTH 13.2 % (11.5-14.0); SEGMENTED NEUTROPHILS % (AUTO) 65.1 % (42-78); TOTAL CELLS COUNTED % (AUTO) 100 %; WHITE BLOOD COUNT 7.7 10^3/uL (4.0-10.5)
[2019-07-28 06:56] LABS: ANION GAP 5 (5-19); BLOOD UREA NITROGEN 9 mg/dL (7-20); CALCIUM 8.1 mg/dL (8.4-10.2); CARBON DIOXIDE 27 mmol/L (22-30); CHLORIDE 106 mmol/L (98-107); GLUCOSE 80 mg/dL (75-110); POTASSIUM 3.4 mmol/L (3.6-5.0)
[2019-07-28] MEDS ORDERED: MAGNESIUM SULFATE/D5W 1 GM/100 ML RTUPB IV ONE (10:00)
[2019-07-28] MEDS ORDERED: POTASSI CL 20 MEQ/50 ML RIDER 20 MEQ/50 ML RTUPB IV ONE (10:30)
--- NOTE | 2019-07-28 10:47 | PDOC PROGRESS REPORT ---
Subjective Progress Note for:: 07/28/19 Subjective:: Thin female laying female comfortably in the bed communicating well. Requesting some break fast. No acute events in the last 24 hours. Afebrile. Medications are adjusted as per psych recommendations. KUB was negative for obstruction. Reason For Visit: ACUTE PANCREATITIS, SIRS, SHELTON Physical Exam Vital Signs: Temp Pulse Resp BP Pulse Ox 98.3 F 92 18 111/88 H 94 07/28/19 08:54 07/28/19 08:54 07/28/19 08:54 07/28/19 08:54 07/28/19 08:54 Intake & Output 07/27/19 07/28/19 07/29/19 06:59 06:59 06:59 Intake Total 3350 2600 Output Total 3600 2450 Balance -250 150 Weight 49.6 kg 50.5 kg General appearance: PRESENT: no acute distress, thin Head exam: PRESENT: atraumatic Eye exam: PRESENT: PERRLA Mouth exam: PRESENT: dry mucosa Teeth exam: PRESENT: poor dentation Neck exam: ABSENT: carotid bruit, JVD, lymphadenopathy, thyromegaly Respiratory exam: PRESENT: decreased breath sounds Cardiovascular exam: PRESENT: RRR. ABSENT: diastolic murmur, rubs, systolic murmur Pulses: PRESENT: normal dorsalis pedis pul GI/Abdominal exam: PRESENT: normal bowel sounds, soft. ABSENT: distended, guarding, mass, organolmegaly, rebound, tenderness Rectal exam: PRESENT: deferred Extremities exam: PRESENT: full ROM. ABSENT: calf tenderness, clubbing, pedal edema Neurological exam: PRESENT: alert, awake, oriented to person, oriented to place, oriented to time, oriented to situation, CN II-XII grossly intact. ABSENT: motor sensory deficit Psychiatric exam: PRESENT: appropriate affect, normal mood. ABSENT: homicidal ideation, suicidal ideation Results Laboratory Results: 07/28/19 05:55 07/28/19 05:55 07/27/19 07/27/19 07/27/19 10:57 10:57 10:57 WBC 8.8 RBC 3.58 L Hgb 12.0 Hct 33.7 L MCV 94 MCH 33.4 MCHC 35.5 RDW 13.0 Plt Count 206 Seg Neutrophils % 74.6 Sodium 139.2 Potassium 2.9 L* Chloride 108 H Carbon Dioxide 27 Anion Gap 4 L BUN 6 L Creatinine 0.60 Est GFR ( Amer) > 60 Glucose 99 Calcium 8.0 L Phosphorus Magnesium Lipase 158.7 07/28/19 07/28/19 05:55 05:55 WBC 7.7 RBC 3.55 L Hgb 11.8 L Hct 33.7 L MCV 95 MCH 33.2 MCHC 34.9 RDW 13.2 Plt Count 113 L Seg Neutrophils % 65.1 Sodium 137.9 Potassium 3.4 L Chloride 106 Carbon Dioxide 27 Anion Gap 5 BUN 9 Creatinine 0.63 Est GFR ( Amer) > 60 Glucose 80 Calcium 8.1 L Phosphorus 5.0 H Magnesium 1.6 Lipase 07/24/19 10:40 Sputum Gram Stain - Final 07/24/19 10:40 Sputum Sputum Culture - Final Mrsa (Meth Resis Staph Aureus) Haemophilus Influenzae Group A Beta Streptococcus Morax.(Branhamella)Catarrhalis Reduced Normal Ambika Impressions: Abdomen/Pelvis CT 07/23/19 16:34 IMPRESSION: 1. Beam hardening artifact from the left posterior flank battery pack obscures some detail in the mid abdomen. There appears to be diffuse enlargement of the pancreas with no peripancreatic fluid. Finding could be seen with early acute pancreatitis. Clinical correlation. 2. Moderate stool and gas throughout the colon which can be seen with constipation. No bowel obstruction. Abdomen Ultrasound 07/24/19 00:00 IMPRESSION: Trace perihepatic free fluid. Otherwise, unremarkable abdominal ultrasound as visualized. Chest X-Ray 07/24/19 00:00 IMPRESSION: Mild ill-defined bibasilar opacities possibly atelectasis or pneumonia. Pelvis Ultrasound 07/24/19 00:00 IMPRESSION: Small volume pelvic ascites. Status post hysterectomy. Ovaries nonvisualized. Abdomen X-Ray 07/26/19 00:00 IMPRESSION: Development of left trace pleural effusion and basilar airspace disease compared to 07/23/2019 Persistent diffuse distention of the colon with gas and stool similar compared to CT 07/23/2019. KUB X-Ray 07/27/19 00:00 IMPRESSION: NO RADIOGRAPHIC EVIDENCE FOR ACUTE ABDOMINAL DISEASE. Assessment and Plan - Diagnosis (1) Acute kidney injury Is this a current diagnosis for this admission?: Yes Plan: Resolved (2) Acute pancreatitis Qualifiers: Pancreatitis type: drug induced Is this a current diagnosis for this admission?: Yes Plan: Lipase proved now down to 6200. We will continue with n.p.o., bowel rest and IV fluids. I will go ahead and obtain a sonogram as patient continues to complain of right-sided upper quadrant pain. No evidence of cholecystitis was seen on the CAT scan but for better visualization will obtain a sonogram 07/24 lipase down to 2100. Patient has this abdominal pain. I will start a clear liquid diet and monitor 07/25 improved July 26 this does seem to be resolving however patient does have an ileus at this time she remains n.p.o. Follow-up lipase level is pending as well as KUB 07/28/2019-latest lipase is 158, KUB came back negative for obstruction. To start her on regular diet today. Acute pancreatitis is resolving. (3) Pneumonia due to Haemophilus influenzae Qualifiers: Lung location: unspecified part of lung Is this a current diagnosis for this admission?: Yes Plan: Sputum culture yielding haemophilus influenza as well as MRSA. She is on vancomycin day 2 and ceftriaxone day 3 07/28/2019-sputum culture is positive for H influenza, MRSA patient is presently on vancomycin and ceftriaxone. Blood pressures are stable temperature 97.3. Plan is to continue the antibiotic therapy at this time. (4) Polysubstance dependence including opioid type drug, episodic abuse Is this a current diagnosis for this admission?: Yes Plan: Patient has been counseled on the need to abstain from illicit drug use 07/28/2019-psych consult was done we will follow the recommendations. Patient was started on Haldol 5 mg p.o. twice daily, Cogentin 1 mg p.o. daily, BuSpar 5 mg p.o. twice daily, Depakote 5 mg p.o. twice daily, gabapentin 600 mg every 8 hours as per behavioral therapy recommendations. Benzodiazepines are discontinued. (5) Sepsis Qualifiers: Sepsis type: sepsis due to unspecified organism Is this a current diagnosis for this admission?: Yes Plan: Patient likely has sepsis on admission. She was tachycardic and of course had acute pancreatitis but in addition she also has pneumonia with a leukocytosis. She also had acute kidney failure which is resolved however patient remains n.p.o. as she now has ileus. Will increase IV fluids and follow-up on labs today. 07/28/2019-sepsis is resolving blood pressures are improved patient is still tachycardic WBC is normalized. Plan is to discontinue IV fluids and to continue antibiotic therapy. (6) Cocaine withdrawal Is this a current diagnosis for this admission?: Yes Plan: Patient is currently withdrawing from her cocaine habit. She apparently does crack every day in addition to other unspecified agents. Will place her on Ativan as needed as Valium seems to be working. At this point she does not need any antipsychotics but this may be an option to use. 07/28/2019-behavioral therapy consult was done be going to implement the recommendations. - Plan Summary Summary: 07/25 she is also yielded MRSA in her sputum. She has been started on vancomycin in addition to ceftriaxone. Abdominal x-ray was also obtained due to her distended abdomen and this reveals distended bowels. An NG tube will be placed and patient will be continued n.p.o. Pancreatitis does appear to be improving with a lipase down to 358 however patient does have pneumonia. Her bedside index of severe acute pancreatitis is 1 based on sirs criteria. Patient also noted to be thrombocytopenic now with initial platelet count more than 300 and currently about 120. Patient is on enoxaparin 30 mg subcu daily if continues to decline will hold and reassess
[2019-07-28] MEDS: FAMOTIDINE INJ/PF 20 MG/2 ML SDV IV SCH ×2 (11:17→21:45)
[2019-07-28] MEDS: ENOXAPARIN SODIUM INJ 30 MG/0.3 ML DISP.SYRIN SUBCUT SCH (11:19)
[2019-07-28] MEDS: BUSPIRONE HCL 10 MG TABLET PO SCH ×2 (11:19→21:44)
[2019-07-28] MEDS: DIVALPROEX SODIUM 500 MG TAB.SR.24H PO SCH ×2 (11:20→21:44)
[2019-07-28] MEDS: HALOPERIDOL 5 MG TABLET PO SCH ×2 (11:20→21:44)
[2019-07-28] MEDS: OXYCODONE-ACETAMINOPHEN 5-325 MG TABLET PO PRN ×2 (11:25→21:43)
[2019-07-28] MEDS: CEFTRIAXONE 1 GM/D5W RTU 1 GM/50 ML RTUPB IV SCH (14:51)
[2019-07-28] MEDS: GABAPENTIN 300 MG CAPSULE PO SCH ×2 (14:51→21:42)
[2019-07-28] MEDS ORDERED: BENZTROPINE MESYLATE 1 MG TABLET PO SCH (22:00)
[2019-07-29] MEDS: VANCOMYCIN HCL 1,000 MG in DEXTROSE 5%-WATER 250 ML IV SCH ×2 (02:16→09:42)
[2019-07-29 06:40] LABS: ALBUMIN 2.5 g/dL (3.5-5.0); ALKALINE PHOSPHATASE 74 U/L (38-126); ASPARTATE AMINO TRANSFERASE 19 U/L (14-36); BILIRUBIN,DIRECT 0.2 mg/dL (0.0-0.4); BILIRUBIN,TOTAL 0.2 mg/dL (0.2-1.3); BLOOD UREA NITROGEN 7 mg/dL (7-20); CALCIUM 8.1 mg/dL (8.4-10.2); CHLORIDE 109 mmol/L (98-107); GLUCOSE 72 mg/dL (75-110); POTASSIUM 3.6 mmol/L (3.6-5.0); TOTAL PROTEIN 5.1 g/dL (6.3-8.2)
[2019-07-29] MEDS: GABAPENTIN 300 MG CAPSULE PO SCH ×2 (06:44→13:42)
[2019-07-29 06:46] LABS: ANION GAP 6 (5-19); CARBON DIOXIDE 27 mmol/L (22-30)
[2019-07-29 07:05] LABS: ABSOLUTE EOSINOPHILS # (AUTO) 0.2 10^3/uL (0.0-0.6); ABSOLUTE LYMPHOCYTES (AUTO) 1.2 10^3/uL (0.5-4.7); ABSOLUTE MONOCYTES (AUTO) 0.7 10^3/uL (0.1-1.4); ABSOLUTE NEUT (AUTO) 3.5 10^3/uL (1.7-8.2); BASOPHILS % (AUTO) 0.7 % (0-2); EOSINOPHILS % (AUTO) 3.4 % (0-6); HEMATOCRIT 32.3 % (36.0-47.0); HEMOGLOBIN 11.2 g/dL (12.0-15.5); LYMPHOCYTES % (AUTO) 21.9 % (13-45); MEAN CORPUSCULAR HGB CONC 34.8 g/dL (32.0-36.0); MEAN CORPUSCULAR VOLUME 95 fl (80-97); MONOCYTES % (AUTO) 12.8 % (3-13); PLATELET COUNT 192 10^3/uL (150-450); RED BLOOD COUNT 3.41 10^6/uL (3.72-5.28); SEGMENTED NEUTROPHILS % (AUTO) 61.2 % (42-78); TOTAL CELLS COUNTED % (AUTO) 100 %; WHITE BLOOD COUNT 5.7 10^3/uL (4.0-10.5)
[2019-07-29 08:56] VITALS: BP 120/78
[2019-07-29] MEDS: BUSPIRONE HCL 10 MG TABLET PO SCH (09:41)
[2019-07-29] MEDS: HALOPERIDOL 5 MG TABLET PO SCH (09:41)
[2019-07-29] MEDS: ENOXAPARIN SODIUM INJ 30 MG/0.3 ML DISP.SYRIN SUBCUT SCH (09:42)
[2019-07-29] MEDS: DIVALPROEX SODIUM 500 MG TAB.SR.24H PO SCH (09:42)
--- NOTE | 2019-07-29 09:42 | PDOC PROGRESS REPORT ---
Subjective Progress Note for:: 07/29/19 Subjective:: Thin female laying female comfortably in the bed communicating well. Requesting some break fast. No acute events in the last 24 hours. Afebrile. Medications are adjusted as per psych recommendations. KUB was negative for obstruction. 07/29/2019-patient is comfortable in the bed denies any abdominal pain was able to tolerate the clear liquids yesterday. To start her on regular diet today. Reason For Visit: ACUTE PANCREATITIS, SIRS, SHELTON Physical Exam Vital Signs: Temp Pulse Resp BP Pulse Ox 97.3 F 90 18 120/78 100 07/29/19 08:17 07/29/19 08:17 07/29/19 08:17 07/29/19 08:17 07/29/19 08:17 Intake & Output 07/28/19 07/29/19 07/30/19 06:59 06:59 06:59 Intake Total 2600 2545 Output Total 2450 4200 Balance 150 -1655 Weight 50.5 kg 50.2 kg General appearance: PRESENT: no acute distress, thin Head exam: PRESENT: atraumatic Eye exam: PRESENT: PERRLA Mouth exam: PRESENT: moist, tongue midline Teeth exam: PRESENT: poor dentation Neck exam: ABSENT: carotid bruit, JVD, lymphadenopathy, thyromegaly Respiratory exam: PRESENT: decreased breath sounds Cardiovascular exam: PRESENT: RRR. ABSENT: diastolic murmur, rubs, systolic murmur Vascular exam: PRESENT: normal capillary refill GI/Abdominal exam: PRESENT: normal bowel sounds, soft. ABSENT: distended, guarding, mass, organolmegaly, rebound, tenderness Rectal exam: PRESENT: deferred Extremities exam: PRESENT: full ROM. ABSENT: calf tenderness, clubbing, pedal edema Neurological exam: PRESENT: alert, awake, oriented to person, oriented to place, oriented to time, oriented to situation, CN II-XII grossly intact. ABSENT: motor sensory deficit Psychiatric exam: PRESENT: appropriate affect, normal mood. ABSENT: homicidal ideation, suicidal ideation Results Laboratory Results: 07/29/19 06:31 07/29/19 05:53 07/29/19 07/29/19 07/29/19 05:53 05:53 06:31 WBC Cancelled 5.7 RBC Cancelled 3.41 L Hgb Cancelled 11.2 L Hct Cancelled 32.3 L MCV Cancelled 95 MCH Cancelled 33.0 MCHC Cancelled 34.8 RDW Cancelled 13.0 Plt Count Cancelled 192 Seg Neutrophils % Cancelled 61.2 Sodium 141.7 Potassium 3.6 Chloride 109 H Carbon Dioxide 27 Anion Gap 6 BUN 7 Creatinine 0.57 Est GFR ( Amer) > 60 Glucose 72 L Calcium 8.1 L Magnesium 1.9 Total Bilirubin 0.2 AST 19 Alkaline Phosphatase 74 Total Protein 5.1 L Albumin 2.5 L 07/24/19 10:40 Sputum Gram Stain - Final 07/24/19 10:40 Sputum Sputum Culture - Final Mrsa (Meth Resis Staph Aureus) Haemophilus Influenzae Group A Beta Streptococcus Morax.(Branhamella)Catarrhalis Reduced Normal Ambika Impressions: Abdomen/Pelvis CT 07/23/19 16:34 IMPRESSION: 1. Beam hardening artifact from the left posterior flank battery pack obscures some detail in the mid abdomen. There appears to be diffuse enlargement of the pancreas with no peripancreatic fluid. Finding could be seen with early acute pancreatitis. Clinical correlation. 2. Moderate stool and gas throughout the colon which can be seen with constipation. No bowel obstruction. Abdomen Ultrasound 07/24/19 00:00 IMPRESSION: Trace perihepatic free fluid. Otherwise, unremarkable abdominal ultrasound as visualized. Chest X-Ray 07/24/19 00:00 IMPRESSION: Mild ill-defined bibasilar opacities possibly atelectasis or pneumonia. Pelvis Ultrasound 07/24/19 00:00 IMPRESSION: Small volume pelvic ascites. Status post hysterectomy. Ovaries nonvisualized. Abdomen X-Ray 07/26/19 00:00 IMPRESSION: Development of left trace pleural effusion and basilar airspace disease compared to 07/23/2019 Persistent diffuse distention of the colon with gas and stool similar compared to CT 07/23/2019. KUB X-Ray 07/27/19 00:00 IMPRESSION: NO RADIOGRAPHIC EVIDENCE FOR ACUTE ABDOMINAL DISEASE. Assessment and Plan - Diagnosis (1) Acute kidney injury Is this a current diagnosis for this admission?: Yes Plan: Resolved (2) Acute pancreatitis Qualifiers: Pancreatitis type: drug induced Is this a current diagnosis for this admission?: Yes Plan: Lipase proved now down to 6200. We will continue with n.p.o., bowel rest and IV fluids. I will go ahead and obtain a sonogram as patient continues to complain of right-sided upper quadrant pain. No evidence of cholecystitis was seen on the CAT scan but for better visualization will obtain a sonogram 07/24 lipase down to 2100. Patient has this abdominal pain. I will start a clear liquid diet and monitor 07/25 improved July 26 this does seem to be resolving however patient does have an ileus at this time she remains n.p.o. Follow-up lipase level is pending as well as KUB 07/28/2019-latest lipase is 158, KUB came back negative for obstruction. To start her on regular diet today. Acute pancreatitis is resolving. 07/29/2019-patient admitted with acute pancreatitis resolving. No abdominal pains or complaint able to tolerate the diet well. Plan is to advance diet from today. (3) Pneumonia due to Haemophilus influenzae Qualifiers: Lung location: unspecified part of lung Is this a current diagnosis for this admission?: Yes Plan: Sputum culture yielding haemophilus influenza as well as MRSA. She is on vancomycin day 2 and ceftriaxone day 3 07/28/2019-sputum culture is positive for H influenza, MRSA patient is presently on vancomycin and ceftriaxone. Blood pressures are stable temperature 97.3. Plan is to continue the antibiotic therapy at this time. 07/29/19-sputum culture is positive for H influenza, MRSA presently on IV vancomy brian and ceftriaxone. Plan is to continue antibiotic therapy at this time. (4) Polysubstance dependence including opioid type drug, episodic abuse Is this a current diagnosis for this admission?: Yes (5) Sepsis Qualifiers: Sepsis type: sepsis due to unspecified organism Is this a current diagnosis for this admission?: Yes Plan: Patient likely has sepsis on admission. She was tachycardic and of course had acute pancreatitis but in addition she also has pneumonia with a leukocytosis. She also had acute kidney failure which is resolved however patient remains n.p.o. as she now has ileus. Will increase IV fluids and follow-up on labs today. 07/28/2019-sepsis is resolving blood pressures are improved patient is still tachycardic WBC is normalized. Plan is to discontinue IV fluids and to continue antibiotic therapy. (6) Cocaine withdrawal Is this a current diagnosis for this admission?: Yes - Plan Summary Summary: 07/25 she is also yielded MRSA in her sputum. She has been started on vancomycin in addition to ceftriaxone. Abdominal x-ray was also obtained due to her distended abdomen and this reveals distended bowels. An NG tube will be placed and patient will be continued n.p.o. Pancreatitis does appear to be improving with a lipase down to 358 however patient does have pneumonia. Her bedside index of severe acute pancreatitis is 1 based on sirs criteria. Patient also noted to be thrombocytopenic now with initial platelet count more than 300 and currently about 120. Patient is on enoxaparin 30 mg subcu daily if continues to decline will hold and reassess
[2019-07-29] MEDS: FAMOTIDINE INJ/PF 20 MG/2 ML SDV IV SCH (09:43)
[2019-07-29] MEDS: CEFTRIAXONE 1 GM/D5W RTU 1 GM/50 ML RTUPB IV SCH (13:42)
[2019-07-29] MEDS: OXYCODONE-ACETAMINOPHEN 5-325 MG TABLET PO PRN (13:42)
--- NOTE | 2019-07-29 17:45 | Left Against Medical Advice ---
Against Medical Advice Admission Date/Time: 07/23/19 17:04 Primary Care Provider: SAMUEL TURNER MD Date of Patient Emigration: 07/29/19 - Diagnosis: (1) Acute kidney injury Is this a current diagnosis for this admission?: Yes (2) Acute pancreatitis Is this a current diagnosis for this admission?: Yes (3) Pneumonia due to Haemophilus influenzae Is this a current diagnosis for this admission?: Yes (4) Polysubstance dependence including opioid type drug, episodic abuse Is this a current diagnosis for this admission?: Yes (5) Sepsis Is this a current diagnosis for this admission?: Yes (6) Cocaine withdrawal Is this a current diagnosis for this admission?: Yes - Summary: Summary: Please see Admission and Progress Notes as well. LYUDMILA PITT is a 49 F, who LEFT AGAINST MEDICAL ADVICE. The Patient was admitted on 07/23/19 17:04. 49-year-old female admitted with complaints of abdominal pain on 07/23/2019. 10 diagnosis is are acute pancreatitis, acute kidney injury, systemic inflammatory response syndrome in association with polysubstance dependence including opioid type of drugs and episodic abuse. During the hospital stay acute pancreatitis is resolved, systemic inflammatory response resolved, acute kidney injury is resolved. Behavioral therapy consult was done during the hospital stay and the recommendations are implemented. Patient was started on regular diet today and she is also receiving Rocephin for gynecological infection. Today patient signed AMA left the hospital. I tried to convince her to stay and the nurses convince her to stay in the hospital at [facility] for another day for further management but she declined and prefers to go home. She understood the risks she is taking by leaving the hospital AGAINST MEDICAL ADVICE.
== END 2019-07-29 15:07 | disposition left against medical advice (07) | DRG 871 ==
LOC: ER 14:40 → EH 17:04 → 3S 19:01
PROVIDERS: ADMIT Internal Medicine; ATTEND Internal Medicine
DX: A41.9 Sepsis, unspecified organism (principal); K85.30 Drug induced acute pancreatitis without necrosis or infection; J14 Pneumonia due to Hemophilus influenzae; J15.212 Pneumonia due to Methicillin resistant Staphylococcus aureus; N17.9 Acute kidney failure, unspecified; F14.23 Cocaine dependence with withdrawal; K56.7 Ileus, unspecified; F11.29 Opioid dependence with unspecified opioid-induced disorder; F15.10 Other stimulant abuse, uncomplicated; F31.9 Bipolar disorder, unspecified; F17.210 Nicotine dependence, cigarettes, uncomplicated; D69.6 Thrombocytopenia, unspecified; Z71.51 Drug abuse counseling and surveillance of drug abuser; M19.90 Unspecified osteoarthritis, unspecified site
CPT/HCPCS: 36415; 71046; 74018; 74019; 74176; 76700; 76856; 80048; 80053; 80202; 80307; 81001; 82962; 83690; 83735; 84100; 84703; 85025; 85610; 85730; 87070; 87077; 87186; 87205; 93005; 93010; 93976; 96374; 99285; 99406; J0696; J1650; J2270; J2405; J3230; J3360; J3370; J3475; J3480; J3490; J7030; J7042; J7060; S0028

== ENCOUNTER 2019-07-30 16:07 | Emergency (ER) | payer OTHER ==
[2019-07-30] MEDS ORDERED: VANCOMYCIN HCL INJ 1000 MG VIAL IV ONE (18:26)
[2019-07-30] MEDS ORDERED: MORPHINE SULFATE 10 MG/ML INJ IV ONE (18:26)
[2019-07-30] MEDS ORDERED: CEFTRIAXONE INJ 1000 MG VIAL IV ONE (18:29)
[2019-07-30] MEDS ORDERED: NORMAL SALINE 1000 ML 1,000 ML IV ONE (18:30)
--- NOTE | 2019-07-30 18:54 | ER Document Report ---
ED General - General Chief Complaint: Pain All Over Stated Complaint: CHEST PAIN Time Seen by Provider: 07/30/19 17:13 TRAVEL OUTSIDE OF THE [place] IN LAST 30 DAYS: No - HPI Notes: 49-year-old female history of bipolar disorder and polysubstance abuse and recently diagnosed [place], MRSA and Haemophilus culture positive pneumonia, pancreatitis, cocaine abuse presents with worsening shortness of breath and di ffuse chest pain and productive cough since patient left AMA from hospital yesterday. On inpatient chart review, patient appears to have resolved pancreatitis while admitted and was planned to continue on antibiotics IV inpatient when left AMA. Patient smoked crack cocaine yesterday, pt unsure if exacerbated the current symptoms. Patient denies any medical history before the above issues which developed during this hospitalization. Patient says she has had multiple bowel movements since being discharged and feels like she "wants to crawl out of her skin", and has pain "all over my body." denies any alcohol benzo barbiturate dependence, tremors, seizure, dizziness, syncope, trauma. Patient also complains of return of epigastric abdominal pain that she previously experienced with pancreatitis, denies any nausea vomiting or change in abdominal pain. - Related Data Allergies/Adverse Reactions: doxycycline [Doxycycline] Allergy (Mild, Verified 07/23/19 14:47) rash povidone-iodine [From Betadine] Allergy (Verified 07/23/19 14:47) soap [From Betadine] Allergy (Verified 07/23/19 14:47) tramadol [From Ultram] Allergy (Verified 07/23/19 14:47) tramadol HCl [From Ultram] Allergy (Verified 07/23/19 14:47) Past Medical History - Social History Smoking Status: Current Every Day Smoker Frequency of alcohol use: None Drug Abuse: Cocaine, Heroin Family History: Reviewed & Not Pertinent Patient has suicidal ideation: No Patient has homicidal ideation: No - Past Medical History Cardiac Medical History: Denies: Hx Coronary Artery Disease, Hx Heart Attack, Hx Hypertension Pulmonary Medical History: Reports: Hx Asthma, Hx Bronchitis, Hx COPD Denies: Hx Pneumonia Neurological Medical History: Reports: Hx Migraine, Hx Seizures. Denies: Hx Cerebrovascular Accident Renal/ Medical History: Denies: Hx Peritoneal Dialysis Musculoskeletal Medical History: Reports Hx Arthritis Psychiatric Medical History: Reports: Hx Anxiety, Hx Bipolar Disorder Past Surgical History: Reports: Hx Abdominal Surgery, Hx Breast Surgery - Lumpectomy, Hx Hysterectomy - PARTIAL, Hx Mastectomy - breast lump removed. Denies: Hx Pacemaker - Immunizations Hx Diphtheria, Pertussis, Tetanus Vaccination: Yes Hx Pneumococcal Vaccination: 04/22/00 Review of Systems - Review of Systems Notes: REVIEW OF SYSTEMS: CONSTITUTIONAL : +fever, +chills, or sweats. EENT: Denies recent cold/sinus symptoms, denies throat pain CARDIOVASCULAR: +chest pain, -TRINH RESPIRATORY: +cough, +shortness of breath. GASTROINTESTINAL: +abdominal pain, -nausea/vomiting. GENITOURINARY: Denies difficulty urinating, painful urination. FEMALE GENITOURINARY: Denies abnormal vaginal bleeding, vaginal discharge. SKIN: Denies rash or skin lesions. HEMATOLOGIC : Denies easy bruising or bleeding. LYMPHATIC: Denies swollen, enlarged glands. NEUROLOGICAL: Denies headache, denies change in gait. PSYCHIATRIC: +anxiety, no si/hi Physical Exam - Vital signs Vitals: Temp Pulse Ox 98.8 F 100 07/30/19 16:08 07/30/19 16:08 - Notes Notes: PHYSICAL EXAMINATION: GENERAL: Anxious and uncomfortable appearing, appears older than stated age, in no acute distress. HEAD: Atraumatic, normocephalic. EYES: Pupils equal round and appropriate constriction, sclera anicteric, conjunctiva are normal. ENT: nares patent, moist mucous membranes. NECK: Normal range of motion, supple without lymphadenopathy LUNGS: Breath sounds with scattered rhonchi to auscultation bilaterally, equal b/l, patient has normal respiratory rate at time of exam, speaking in full sentences, no drooling, no tripoding, no supplemental O2, no wheezing, good air movement HEART: Regular rate and rhythm without murmurs ABDOMEN: Soft, mild distractible epigastric tenderness, no guarding, rebound, no masses, no CVAT EXTREMITIES: Normal range of motion, no pitting or edema. No cyanosis. NEUROLOGICAL: Awake, alert, conversing appropriately, moves all extremities spontaneously. PSYCH: Anxious mood, no disorganized thoughts or behavior SKIN: Warm, Dry, normal turgor, no rashes or lesions noted. Course - Re-evaluation Re-evalutation: 07/30/19 18:57 Patient borderline tachypneic on arrival to ED but satting well on room oxygen and normal respiratory rate at time of my initial evaluation. No signs of impending respiratory failure. Patient placed immediately and cope with isola tion and on graphics editor and pulse oximeter and will continue to monitor for any signs of worsening status. Presentation consistent with continued pneumonia symptoms, will obtain flu and cope with testing for cohorting patient will require admission for further IV antibiotics. Not currently meeting sepsis criteria. Previous inpatient note mentions a BATTERBOARD SETTER infection but patient without any current complaints so will defer further investigation to inpatient team as not currently medically necessary or prudent given current isolation status. Patient given morphine and Ativan for pain control and to facilitate medical evaluation and treatment. Discussed case with Dr. Calhoun, will call night hospitalist once initial work-up results. 07/31/19 01:57 No emergent findings found on work-up. Dimer was mildly positive so obtain CTA chest which showed no PE and no acute findings in the lungs. Patient informed of incidental findings on CT including air around breast implant pocket. Patient remained without any objective signs of dyspnea on room air throughout ED evaluation. Called hospitalist Dr. Johnson for admission to continue course of antibiotics, but he declined admission, left note in EMR. While waiting for hospitalist to evaluate patient, patient decided to leave AGAINST MEDICAL ADVICE. Patient had capacity to make this decision, was able to show adequate decision-making, was able to demonstrate that she understood the risks of this decision. Given her lack of x-ray/CT findings of pneumonia, lack of leukocytosis, lack of any coughing throughout ED evaluation., Lack of any objective signs of dyspnea, gait not medically necessary to prescribe further outpatient antibiotics as course received inpatient seems to have sufficed. No signs of COPD exacerbation. Chest pain constant for 24 hours and troponin negative, therefore no indication to further trend troponin. Mildly elevated BNP without any clinical signs of volume overload and clear chest x-ray insufficient to diagnose CHF exacerbation which there were no signs of an patient's clinical picture. - Vital Signs Vital signs: Temp Pulse Resp BP Pulse Ox 97.9 F 87 18 119/78 98 07/31/19 00:53 07/31/19 00:53 07/31/19 00:53 07/31/19 00:53 07/31/19 00:53 - Laboratory Result Diagrams: 07/30/19 17:10 07/30/19 17:10 Laboratory results interpreted by me: 07/30/19 07/30/19 07/30/19 17:10 17:10 17:10 RBC 3.56 L Hgb 11.7 L Hct 33.8 L Plt Count 128 L D-Dimer 6.84 H BUN NT-Pro-B Natriuret Pep 671 H Total Protein Albumin Lipase 07/30/19 17:10 RBC Hgb Hct Plt Count D-Dimer BUN 6 L NT-Pro-B Natriuret Pep Total Protein 6.0 L Albumin 3.1 L Lipase 476.4 H - EKG Interpretation by Me Additional EKG results interpreted by me: 08/06/19 10:12 08/03/19 13:30 Normal sinus rhythm, rate 86, normal QTC, no significant ST abnormalities Discharge - Discharge Clinical Impression: Cough Condition: Good Disposition: AGAINST MEDICAL ADVICE Instructions: Chest Pain of Unclear Cause ([facility]) Additional Instructions: Patient was provided with discharge information including: As a person under investigation for Covid 19, the [facility], division of public health advises you to adhere to the following guidance until your test results are reported to you. If your test result is positive, you will receive additional information from your provider and your local health department at that time. Remain at home until you are cleared by the health provider or public health authorities. Keep a log of visitors to your home, notify any visitors to your home of your isolation status. If you plan to move to a new address or leave the county, notify the local health department in your County. Call your doctor or seek care if you have an urgent medical need. Before seeking medical care, call ahead to get instructions from the provider before arriving at the medical office clinic or hospital. Notify them that you are being tested for the virus that causes Covid 19 so that arrangements can be made, as necessary, to prevent transmission to others in the healthcare setting. Next, notify the local health department in your county. If a medical emergency arises and you need to call 911, inform the first responders that you are being tested for the virus that causes Covid 19. Next, notify the local health department in your county. If you have worsening symptoms, difficulty breathing, or any other alarming symptoms return to the ED immediately. Follow-up with your primary doctor within 1 week. Prescriptions: Lidocaine 1 each TP WSUPPER PRN #10 adh..patch PRN Reason:
[2019-07-30 19:00] LABS: ABSOLUTE EOSINOPHILS # (AUTO) 0.1 10^3/uL (0.0-0.6); ABSOLUTE LYMPHOCYTES (AUTO) 1.3 10^3/uL (0.5-4.7); ABSOLUTE MONOCYTES (AUTO) 0.8 10^3/uL (0.1-1.4); ABSOLUTE NEUT (AUTO) 4.7 10^3/uL (1.7-8.2); BASOPHILS % (AUTO) 0.4 % (0-2); EOSINOPHILS % (AUTO) 1.9 % (0-6); HEMATOCRIT 33.8 % (36.0-47.0); HEMOGLOBIN 11.7 g/dL (12.0-15.5); LYMPHOCYTES % (AUTO) 18.8 % (13-45); MEAN CORPUSCULAR HEMOGLOBIN 32.8 pg (27.0-33.4); MEAN CORPUSCULAR HGB CONC 34.6 g/dL (32.0-36.0); MEAN CORPUSCULAR VOLUME 95 fl (80-97); MONOCYTES % (AUTO) 11.5 % (3-13); RED BLOOD COUNT 3.56 10^6/uL (3.72-5.28); RED CELL DISTRIBUTION WIDTH 13.2 % (11.5-14.0); SEGMENTED NEUTROPHILS % (AUTO) 67.4 % (42-78); TOTAL CELLS COUNTED % (AUTO) 100 %
[2019-07-30 19:06] LABS: ALBUMIN 3.1 g/dL (3.5-5.0); ALKALINE PHOSPHATASE 82 U/L (38-126); ANION GAP 5 (5-19); ASPARTATE AMINO TRANSFERASE 21 U/L (14-36); BILIRUBIN,DIRECT 0.2 mg/dL (0.0-0.4); BILIRUBIN,TOTAL 0.2 mg/dL (0.2-1.3); BLOOD UREA NITROGEN 6 mg/dL (7-20); CARBON DIOXIDE 30 mmol/L (22-30); CHLORIDE 104 mmol/L (98-107); CREATINE KINASE 54 U/L (30-135); GLUCOSE 88 mg/dL (75-110); POTASSIUM 3.8 mmol/L (3.6-5.0)
[2019-07-30 19:17] LABS: NT PRO BNP 671 pg/mL (<125)
[2019-07-30 19:18] LABS: PLATELET COUNT 128 10^3/uL (150-450); TROPONIN I < 0.012 ng/mL
[2019-07-30 19:29] LABS: A TYPE INFLUENZA AG NEGATIVE (NEGATIVE); B INFLUENZA AG NEGATIVE (NEGATIVE)
--- NOTE | 2019-07-30 20:07 | RADIOLOGY REPORT (SQ) ---
EXAM DESCRIPTION: CHEST SINGLE VIEW IMAGES COMPLETED DATE/TIME: 07/30/2019 7:19 pm REASON FOR STUDY: sob cough, covid precautions COMPARISON: Chest films 07/24/2019, 01/21/2019 EXAM PARAMETERS: NUMBER OF VIEWS: One view. TECHNIQUE: Single frontal radiographic view of the chest acquired. RADIATION DOSE: NA LIMITATIONS: None. FINDINGS: LUNGS AND PLEURA: Upper lobes are hyperlucent from obstructive disease. No focal infiltrates. No pleural effusion. No pneumothorax. MEDIASTINUM AND HILAR STRUCTURES: No masses. Contour normal. HEART AND VASCULAR STRUCTURES: Heart normal in size. Normal vasculature. BONES: No acute findings. HARDWARE: Neurostimulator with electrodes over the lower cervical spine OTHER: No other significant finding. IMPRESSION: No focal infiltrates. Obstructive lung disease. TECHNICAL DOCUMENTATION: JOB ID: [id number] 2010 [employer]- All Rights Reserved Reading location - IP/workstation name: [id number]
--- NOTE | 2019-07-30 22:34 | RADIOLOGY REPORT (SQ) ---
EXAM DESCRIPTION: CT CHEST ANGIOGRAPHY WITHOUT THEN WITH IV CONTRAST COMPLETED DATE/TME: 07/30/2019 20:04 CLINICAL INDICATION: 49-year-old female with shortness of breath and positive d-dimer. COMPARISON: 01/21/2019. EXAMINATION: CT angiography of the pulmonary arteries was performed following intravenous administration of contrast. Coronal and bilateral oblique maximum intensity projections (MIPS) were created. This exam was performed according to our departmental dose optimization program which includes use of automated exposure control, adjustment of the mA and/or kV according to patient size and/or use of iterative reconstruction technique. FINDINGS: Chest: Evaluation through the lungs reveals centrilobular lucency compatible with emphysema without focal opacity, pleural effusion or pneumothorax. There is minimal dependent basilar atelectasis and scarring. The tracheobronchial airways are patent. No significant mediastinal or axillary lymphadenopathy by CT measurement criteria. Bilateral breast prostheses. Nonspecific air lucency is identified deep to the subcutaneous tissues of the LEFT breast, just external to the breast prosthesis capsule of uncertain etiology. Additionally, there appears to be some degree of deformity and flattening of the medial breast prosthesis. Please correlate with patient clinical findings. Follow-up evaluation for integrity of the breasts capsule may be considered with follow-up MRI. Heart size within normal limits. No pericardial effusion. Incompletely visualized spinal stimulator wires entering the central spinal canal at approximately T3 vertebral level, terminating off the [id number] of the examination. Limited evaluation of the upper abdomen shows no acute intra-abdominal abnormalities. The osseous structures are within normal limits. CT angiography: Diagnostic CT angiography of the pulmonary arteries without intraluminal filling defect noted to suggest pulmonary arterial embolus. IMPRESSION: 1. Diagnostic pulmonary angiography without findings to suggest pulmonary arterial embolus. 2. The lungs are clear without focal opacity, pleural effusion or pneumothorax. 3. No specific findings are noted to suggest etiology of the patient's chest pain and shortness of breath. 4. Nonspecific air lucency superficial to the medial LEFT breast prosthesis capsule, deep to the muscular tissues of uncertain etiology. Additionally, there appears to be medial deformity of the breast prosthesis. Overall findings are unchanged since examination dated 01/21/2018. Correlation with follow-up MRI may be considered
[2019-07-30] MEDS ORDERED: ACETAMINOPHEN 325 MG TABLET PO ONE (23:09)
[2019-07-30] MEDS ORDERED: ONDANSETRON HCL INJ/PF 4 MG/2 ML SDV IV ONE (23:10)
--- NOTE | 2019-07-31 00:01 | PDOC CONSULTATION ---
Consultation Consult Date: 07/30/19 Attending physician:: SONIDO NAVA Provider Consulted: ENRIQUE THOMPSON History of Present Illness Patient complains of: Diffuse pain History of Present Illness: LYUDMILA PITT is a 49 year old female with a history of COPD, chronic bronchitis, crack cocaine, chronic pain and heroin abuse. Patient was admitted 7 days ago for acute pancreatitis which resolved with bowel rest and questionable pneumonia for which she received 6 days of IV antibiotics despite lack of fever or leukocytosis. The patient left AGAINST MEDICAL ADVICE following psychiatric evaluation and consideration of inpatient detox. She returns to the emergency department with diffuse pain of her abdomen chest and back. Work-up reveals no tachypnea, hypoxia, fever, hypotension, leukocytosis, or infiltrate by chest x-ray nor CTA chest. Patient received morphine for complaints of pain. Hospitalist is consulted for evaluation of pneumonia. Past Medical History Cardiac Medical History: Denies: Coronary Artery Disease, Myocardial Infarction, Hypertension Pulmonary Medical History: Reports: Asthma, Bronchitis, Chronic Obstructive Pulmonary Disease (COPD) Denies: Pneumonia Neurological Medical History: Reports: Migraine, Seizures Musculoskeltal Medical History: Reports: Arthritis Psychiatric Medical History: Reports: Bipolar Disorder, Substance Abuse, Tobacco Dependency Hematology: Denies: Anemia Past Surgical History Past Surgical History: Reports: Hysterectomy - PARTIAL, Mastectomy - breast lump removed Denies: Pacemaker Social History Information Source: Patient, Emergency Med Personnel, [facility] Records Smoking Status: Current Every Day Smoker Frequency of Alcohol Use: None Drugs: Cocaine, Heroin, Marijuana Hx Prescription Drug Abuse: No - Advance Directive Resuscitation Status: Full Code Family History Family History: Hypertension Parental Family History Reviewed: Yes Children Family History Reviewed: Yes Sibling(s) Family History Reviewed.: Yes Medication/Allergy Home Medications: Divalproex Sodium [Depakote Er 500 Mg Tab.Sr] 1,000 mg PO QHS 02/21/11 Gabapentin 600 mg PO Q8 07/23/19 Allergies/Adverse Reactions: doxycycline [Doxycycline] Allergy (Mild, Verified 07/23/19 14:47) rash povidone-iodine [From Betadine] Allergy (Verified 07/23/19 14:47) soap [From Betadine] Allergy (Verified 07/23/19 14:47) tramadol [From Ultram] Allergy (Verified 07/23/19 14:47) tramadol HCl [From Ultram] Allergy (Verified 07/23/19 14:47) Review of Systems Constitutional: PRESENT: as per HPI, anorexia. ABSENT: fatigue, weight gain, weight loss Eyes: ABSENT: visual disturbances Ears: ABSENT: hearing changes Cardiovascular: ABSENT: chest pain, dyspnea on exertion, edema, orthropnea, palpitations Respiratory: ABSENT: cough, hemoptysis Gastrointestinal: ABSENT: abdominal pain, constipation, diarrhea, hematemesis, hematochezia, nausea, vomiting Genitourinary: ABSENT: dysuria, hematuria Musculoskeletal: PRESENT: as per HPI. ABSENT: joint swelling Integumentary: ABSENT: rash, wounds Neurological: ABSENT: abnormal gait, abnormal speech, confusion, dizziness, focal weakness, syncope Psychiatric: ABSENT: anxiety, depression, homidical ideation, suicidal ideation Endocrine: ABSENT: cold intolerance, heat intolerance, polydipsia, polyuria Hematologic/Lymphatic: ABSENT: easy bleeding, easy bruising Physical Exam Vital Signs: Temp Pulse Resp BP Pulse Ox 98.4 F 14 132/85 H 97 07/30/19 19:45 07/30/19 22:01 07/30/19 22:01 07/30/19 22:01 Intake & Output 07/29/19 07/30/19 07/31/19 11:59 11:59 11:59 Intake Total 1000 Balance 1000 Weight 51.2 kg General appearance: PRESENT: no acute distress, well-developed, well-nourished Head exam: PRESENT: atraumatic, normocephalic Eye exam: PRESENT: conjunctiva pink, EOMI, PERRLA. ABSENT: scleral icterus Ear exam: PRESENT: normal external ear exam Mouth exam: PRESENT: moist, tongue midline Neck exam: ABSENT: carotid bruit, JVD, lymphadenopathy, thyromegaly Respiratory exam: PRESENT: clear to auscultation flash. ABSENT: rales, rhonchi, wheezes Cardiovascular exam: PRESENT: RRR. ABSENT: diastolic murmur, rubs, systolic murmur Pulses: PRESENT: normal dorsalis pedis pul Vascular exam: PRESENT: normal capillary refill GI/Abdominal exam: PRESENT: normal bowel sounds, soft. ABSENT: distended, guarding, mass, organolmegaly, rebound, tenderness Rectal exam: PRESENT: deferred Extremities exam: PRESENT: full ROM. ABSENT: calf tenderness, clubbing, pedal edema Neurological exam: PRESENT: alert, awake, oriented to person, oriented to place, oriented to time, oriented to situation, CN II-XII grossly intact. ABSENT: motor sensory deficit Psychiatric exam: PRESENT: appropriate affect, normal mood. ABSENT: homicidal ideation, suicidal ideation Skin exam: PRESENT: dry, intact, warm. ABSENT: cyanosis, rash Results Laboratory Results: 07/30/19 17:10 07/30/19 17:10 07/30/19 07/30/19 07/30/19 17:10 17:10 17:10 WBC 7.0 RBC 3.56 L Hgb 11.7 L Hct 33.8 L MCV 95 MCH 32.8 MCHC 34.6 RDW 13.2 Plt Count 128 L Seg Neutrophils % 67.4 Sodium 139.3 Potassium 3.8 Chloride 104 Carbon Dioxide 30 Anion Gap 5 BUN 6 L Creatinine 0.61 Est GFR ( Amer) > 60 Glucose 88 Calcium 9.0 Total Bilirubin 0.2 AST 21 Alkaline Phosphatase 82 Total Protein 6.0 L Albumin 3.1 L Lipase 476.4 H Serum HCG, Qual NEGATIVE 07/30/19 07/30/19 17:10 17:10 Creatine Kinase 54 Troponin I < 0.012 NT-Pro-B Natriuret Pep 671 H Impressions: Chest X-Ray 07/30/19 18:27 IMPRESSION: No focal infiltrates. Obstructive lung disease. Chest/Abdomen CTA 07/30/19 20:04 IMPRESSION: 1. Diagnostic pulmonary angiography without findings to suggest pulmonary arterial embolus. 2. The lungs are clear without focal opacity, pleural effusion or pneumothorax. 3. No specific findings are noted to suggest etiology of the patient's chest pain and shortness of breath. 4. Nonspecific air lucency superficial to the medial LEFT breast prosthesis capsule, deep to the muscular tissues of uncertain etiology. Additionally, there appears to be medial deformity of the breast prosthesis. Overall findings are unchanged since examination dated 01/21/2018. Correlation with follow-up MRI may be considered Assessment and Plan - Diagnosis (1) Pain Is this a current diagnosis for this admission?: Yes Plan: Complicated by history of chronic pain, polysubstance abuse and AMA following discussions of rehab. Without biochemical or biophysical findings suggestive of acute life-threatening condition suggest follow-up with methadone clinic. (2) Shortness of breath Is this a current diagnosis for this admission?: Yes Plan: Most likely manifestation of opiate withdrawal, no biophysical or biochemical evidence for active pneumonic or cardiac component. Suggest reassurance, follow-up, continue quarantine pending Covid results. - Time Time Spent with patient: 25-34 minutes
[2019-07-31 00:57] VITALS: BP 119/78
--- NOTE | 2019-07-31 09:49 | EKG REPORT ---
SEVERITY:- NORMAL ECG - SINUS RHYTHM : Confirmed by: Mehnaz Woodard MD 31-Jul-2019 09:49:23
== END 2019-07-31 01:04 | disposition left against medical advice (07) ==
LOC: ER 16:07
DX: R05 Cough (principal); R07.9 Chest pain, unspecified; M79.10 Myalgia, unspecified site; R06.02 Shortness of breath; R10.9 Unspecified abdominal pain; R50.9 Fever, unspecified; F41.9 Anxiety disorder, unspecified; F31.9 Bipolar disorder, unspecified; F19.10 Other psychoactive substance abuse, uncomplicated; F14.10 Cocaine abuse, uncomplicated; J44.9 Chronic obstructive pulmonary disease, unspecified; Z88.8 Allergy status to other drugs, medicaments and biological substances; F17.200 Nicotine dependence, unspecified, uncomplicated; Z20.828 Contact with and (suspected) exposure to other viral communicable diseases
CPT/HCPCS: 93005; 99285; 96361; 96375; 96365; 96367; 36415; 82550; 83690; 84703; 85025; 87635; 80053; 84484; 85379; 87804; 83880; 71045; 71275; 93010; J2270; J0696; J2405; J7030; J3370

== ENCOUNTER 2019-08-08 14:13 | Emergency (ER) | payer OTHER ==
[2019-08-08] MEDS ORDERED: NORMAL SALINE 1000 ML 1,000 ML IV ONE (14:50)
[2019-08-08] MEDS ORDERED: ONDANSETRON HCL INJ/PF 4 MG/2 ML SDV IV ONE (14:50)
--- NOTE | 2019-08-08 14:50 | ER Document Report ---
ED Medical Screen (RME) - General Chief Complaint: Abdominal Pain Stated Complaint: ABDOMINAL PAIN Time Seen by Provider: 08/08/19 14:48 Mode of Arrival: Ambulatory Information source: Patient Notes: 49-year-old female presented to ED for complaint of abdominal pain no appetite nausea no vomiting and diarrhea. She states that she has been clean for the last 11 days. She said she was seen here recently with a lot of stuff in her system but she has been to detox and is now at the [facility] and is not using any kind of drugs except for her cigarettes. Patient is alert oriented respira tions regular nonlabored speaking in full sentences. She states she is in a lot of pain nausea diarrhea and cannot eat or drink anything. I have greeted and performed a rapid initial assessment of this patient. A comprehensive ED assessment and evaluation of the patient, analysis of test results and completion of medical decision making process will be conducted by an additional ED providers. TRAVEL OUTSIDE OF THE [place] IN LAST 30 DAYS: No - Related Data Allergies/Adverse Reactions: doxycycline [Doxycycline] Allergy (Mild, Verified 07/23/19 14:47) rash povidone-iodine [From Betadine] Allergy (Verified 07/23/19 14:47) tramadol [From Ultram] Allergy (Verified 07/23/19 14:47) tramadol HCl [From Ultram] Allergy (Verified 07/23/19 14:47) Past Medical History - Past Medical History Cardiac Medical History: Denies: Hx Coronary Artery Disease, Hx Heart Attack, Hx Hypertension Pulmonary Medical History: Reports: Hx Asthma, Hx Bronchitis, Hx COPD Denies: Hx Pneumonia Neurological Medical History: Reports: Hx Migraine, Hx Seizures. Denies: Hx Cerebrovascular Accident Renal/ Medical History: Denies: Hx Peritoneal Dialysis Musculoskeltal Medical History: Reports Hx Arthritis Psychiatric Medical History: Reports: Hx Anxiety, Hx Bipolar Disorder Past Surgical History: Reports: Hx Abdominal Surgery, Hx Breast Surgery - Lumpectomy, Hx Hysterectomy - PARTIAL, Hx Mastectomy - breast lump removed. Denies: Hx Pacemaker - Immunizations Hx Diphtheria, Pertussis, Tetanus Vaccination: Yes Physical Exam - Vital signs Vitals: Temp Pulse Resp BP Pulse Ox 98.7 F 100 22 H 120/76 95 08/08/19 14:15 08/08/19 14:15 08/08/19 14:15 08/08/19 14:15 08/08/19 14:15 Course - Vital Signs Vital signs: Temp Pulse Resp BP Pulse Ox 98.7 F 100 22 H 120/76 95 08/08/19 14:15 08/08/19 14:15 08/08/19 14:15 08/08/19 14:15 08/08/19 14:15
[2019-08-08 15:49] LABS: APPEARANCE,URINE CLEAR; BILIRUBIN,URINE NEGATIVE (NEGATIVE); COLOR,URINE YELLOW; GLUCOSE, URINE NEGATIVE (NEGATIVE); KETONES,URINE NEGATIVE (NEGATIVE); PROTEIN,URINE NEGATIVE (NEGATIVE); URINE SPECIFIC GRAVITY 1.014; UROBILINOGEN,URINE NEGATIVE mg/dL (<2.0)
[2019-08-08 15:58] LABS: ABSOLUTE BASOPHILS # (AUTO) 0.1 10^3/uL (0.0-0.2); ABSOLUTE EOSINOPHILS # (AUTO) 0.2 10^3/uL (0.0-0.6); ABSOLUTE LYMPHOCYTES (AUTO) 1.6 10^3/uL (0.5-4.7); ABSOLUTE MONOCYTES (AUTO) 0.7 10^3/uL (0.1-1.4); ABSOLUTE NEUT (AUTO) 5.3 10^3/uL (1.7-8.2); BASOPHILS % (AUTO) 0.9 % (0-2); EOSINOPHILS % (AUTO) 2.5 % (0-6); HEMATOCRIT 36.9 % (36.0-47.0); HEMOGLOBIN 12.7 g/dL (12.0-15.5); LYMPHOCYTES % (AUTO) 20.4 % (13-45); MEAN CORPUSCULAR HEMOGLOBIN 32.6 pg (27.0-33.4); MEAN CORPUSCULAR HGB CONC 34.4 g/dL (32.0-36.0); MEAN CORPUSCULAR VOLUME 95 fl (80-97); MONOCYTES % (AUTO) 8.3 % (3-13); PLATELET COUNT 563 10^3/uL (150-450); RED BLOOD COUNT 3.89 10^6/uL (3.72-5.28); RED CELL DISTRIBUTION WIDTH 13.3 % (11.5-14.0); SEGMENTED NEUTROPHILS % (AUTO) 67.9 % (42-78); TOTAL CELLS COUNTED % (AUTO) 100 %; WHITE BLOOD COUNT 7.8 10^3/uL (4.0-10.5)
--- NOTE | 2019-08-08 16:00 | ER Document Report ---
ED GI/ - General Chief Complaint: Abdominal Pain Stated Complaint: ABDOMINAL PAIN Time Seen by Provider: 08/08/19 14:48 Mode of Arrival: Ambulatory Notes: CHIEF COMPLAINT: Abdominal pain and nausea HPI: 49-year-old female with history of drug addiction presenting for abdominal pain and nausea. States she was diagnosed with pancreatitis at the beginning of the month and was admitted to the hospital for 9 days signed out AGAINST MEDICAL ADVICE and then came back on July 29 for reevaluation. States she was again discharged and has been living at a rehab facility but still having nausea and abdominal pain. Also complains of some diarrhea. Patient denies drug use in the last 11 days. ROS: See HPI - all other systems were reviewed and are otherwise negative Constitutional: no fever Eyes: no drainage, no blurred vision ENT: no runny nose, no sore throat Cardiovascular: no chest pain Resp: no SOB, no cough GI: no vomiting, + diarrhea, + abdominal pain : no dysuria Integumentary: no rash Allergy: no hives Musculoskeletal: no extremity pain or swelling Neurological: no numbness/tingling, no weakness MEDICATIONS: I agree with the patient medications as charted by the RN. ALLERGIES: I agree with the allergies as charted by the RN. PAST MEDICAL HISTORY/PAST SURGICAL HISTORY: Reviewed and agree as charted by RN. SOCIAL HISTORY: Reviewed and agree as charted by RN. FAMILY HISTORY: No significant familial comorbid conditions directly related to patient complaint EXAM: Reviewed vital signs as charted by RN. CONSTITUTIONAL: Alert and oriented and responds appropriately to questions. Well-appearing; well-nourished HEAD: Normocephalic; atraumatic EYES: PERRL; Conjunctivae clear, sclerae non-icteric ENT: normal nose; no rhinorrhea; moist mucous membranes; pharynx without lesions noted, no uvula edema or deviation, no tonsillar hypertrophy, phonation normal NECK: Supple without meningismus; non-tender; no cervical lymphadenopathy, no masses CARD: RRR; no murmurs, no clicks, no rubs, no gallops; symmetric distal pulses RESP: Normal chest excursion without splinting or tachypnea; breath sounds clear and equal bilaterally; no wheezes, no rhonchi, no rales, pulse oximetry 98% on room air not hypoxic ABD/GI: Normal bowel sounds; non-distended; soft, mild tenderness in the epigastric left upper quadrant region on palpation no lower abdominal pain on palpation, no rebound, no guarding; no palpable organomegaly or masses. BACK: The back appears normal and is non-tender to palpation, there is no CVA tenderness EXT: Normal ROM in all joints; non-tender to palpation; no cyanosis, no effusions, no edema SKIN: Normal color for age and race; warm; dry; good turgor; no acute lesions noted NEURO: Moves all extremities equally; Motor and sensory function intact PSYCH: The patient's mood and manner are appropriate. Grooming and personal hygiene are appropriate. MDM: 49-year-old female with history of drug abuse presenting for continued abdominal pain over the last 18 days with nausea. On review of the prior records she was diagnosed with possible early pancreatitis 9 days ago. This was by CT and a lipase of 450. Patient states she has not been using drugs or alcohol recently. Patient lab work shows a normal WBC. Awaiting lipase. Will obtain CT given her recurrent visits for abdominal pain TRAVEL OUTSIDE OF THE [place] IN LAST 30 DAYS: No - Related Data Allergies/Adverse Reactions: doxycycline [Doxycycline] Allergy (Mild, Verified 08/08/19 17:26) rash povidone-iodine [From Betadine] Allergy (Verified 08/08/19 17:26) tramadol [From Ultram] Allergy (Verified 08/08/19 17:26) tramadol HCl [From Ultram] Allergy (Verified 08/08/19 17:26) Past Medical History - General Information source: Patient - Social History Smoking Status: Current Every Day Smoker Family History: Reviewed & Not Pertinent Patient has suicidal ideation: No Patient has homicidal ideation: No - Past Medical History Cardiac Medical History: Denies: Hx Coronary Artery Disease, Hx Heart Attack, Hx Hypertension Pulmonary Medical History: Reports: Hx Asthma, Hx Bronchitis, Hx COPD Denies: Hx Pneumonia Neurological Medical History: Reports: Hx Migraine, Hx Seizures. Denies: Hx Cerebrovascular Accident Renal/ Medical History: Denies: Hx Peritoneal Dialysis Musculoskeletal Medical History: Reports Hx Arthritis Psychiatric Medical History: Reports: Hx Anxiety, Hx Bipolar Disorder Past Surgical History: Reports: Hx Abdominal Surgery, Hx Breast Surgery - Lumpectomy, Hx Hysterectomy - PARTIAL. Denies: Hx Mastectomy, Hx Pacemaker - Immunizations Hx Diphtheria, Pertussis, Tetanus Vaccination: Yes Hx Pneumococcal Vaccination: 04/22/00 Physical Exam - Vital signs Vitals: Temp Pulse Resp BP Pulse Ox 98.7 F 100 22 H 120/76 95 08/08/19 14:15 08/08/19 14:15 08/08/19 14:15 08/08/19 14:15 08/08/19 14:15 Course - Re-evaluation Re-evalutation: 08/08/19 18:13 Case was discussed with Dr. adkins attending. Patient has a mild elevation of her lipase at 546. Patient WBC count is normal. CT imaging shows a mild ileus, no definitive obstruction patient has had no significant abdominal surgeries per the patient. Patient has no inflammatory changes around the pancreas. Patient has been eating and drinking and moving her bowels all within the last 24 hours. Patient could have a gastric ulcer. Patient could just have the ileus causing the discomfort. I will keep her on Reglan, Bentyl, Pepcid. She has an appoint ment with her general practitioner on Saturday. Will also refer patient to gastroenterology. Strict return instructions were discussed with the patient at length and she verbalizes understanding. She is in agreement with this plan 08/08/19 18:16 Unlikely to have a biliary stricture at this time as patient's other liver functions are all normal - Vital Signs Vital signs: Temp Pulse Resp BP Pulse Ox 98.1 F 100 17 120/86 H 100 08/08/19 15:41 08/08/19 14:15 08/08/19 15:41 08/08/19 15:41 08/08/19 15:41 - Laboratory Result Diagrams: 08/08/19 15:43 08/08/19 15:43 Laboratory results interpreted by me: 08/08/19 08/08/19 08/08/19 15:10 15:43 15:43 Plt Count 563 H Sodium 136.0 L Est GFR (MDRD) Non-Af 50 L Lipase 564.2 H Leukocyte Esterase Rfl MODERATE H Discharge - Discharge Clinical Impression: Abdominal pain, left upper quadrant, Elevated lipase Condition: Stable Disposition: HOME, SELF-CARE Additional Instructions: Take the Bentyl for abdominal spasm and pain, take Reglan for nausea and to help with the ileus. Take Pepcid to help with possible gastric ulcer. Follow-up wi th your general practitioner on Saturday as previously scheduled also follow-up with gastroenterology for further evaluation and treatment. Your lab work today showed a mildly elevated lipase. It also showed a mild ileus which is a slowing of the bowel as discussed. If you have worsening or uncontrolled pain or vomiting return for reevaluation Prescriptions: Dicyclomine HCl [Bentyl 20 mg Tablet] 20 mg PO Q6H PRN #20 tablet PRN Reason: Famotidine [Pepcid 20 mg Tablet] 20 mg PO DAILY #12 tablet Metoclopramide HCl [Reglan 10 mg Tablet] 10 mg PO QID #40 tablet Referrals: DANNIE MARK MD [ACTIVE STAFF] - Follow up as needed
[2019-08-08] MEDS ORDERED: MORPHINE SULFATE 10 MG/ML INJ IV ONE (16:07)
[2019-08-08 16:10] LABS: URINE AMPHETAMINES SCREEN NEGATIVE; URINE BARBITURATES SCREEN NEGATIVE; URINE BENZODIAZEPINES SCREEN NEGATIVE; URINE COCAINE SCREEN NEGATIVE; URINE MARIJUANA (THC) SCREEN NEGATIVE; URINE METHADONE SCREEN NEGATIVE; URINE PHENCYCLIDINE SCREEN NEGATIVE
[2019-08-08 16:13] LABS: ALBUMIN 4.2 g/dL (3.5-5.0); ALKALINE PHOSPHATASE 81 U/L (38-126); ANION GAP 5 (5-19); ASPARTATE AMINO TRANSFERASE 27 U/L (14-36); BILIRUBIN,DIRECT 0.1 mg/dL (0.0-0.4); BILIRUBIN,TOTAL 0.3 mg/dL (0.2-1.3); BLOOD UREA NITROGEN 18 mg/dL (7-20); CALCIUM 9.5 mg/dL (8.4-10.2); CARBON DIOXIDE 28 mmol/L (22-30); CHLORIDE 103 mmol/L (98-107); GLUCOSE 102 mg/dL (75-110); POTASSIUM 4.6 mmol/L (3.6-5.0); TOTAL PROTEIN 7.5 g/dL (6.3-8.2)
--- NOTE | 2019-08-08 17:11 | RADIOLOGY REPORT (SQ) ---
EXAM DESCRIPTION: CT ABD/PELVIS WITH IV ONLY IMAGES COMPLETED DATE/TIME: 08/08/2019 3:44 pm REASON FOR STUDY: mid abd pain hx pancreatitis. Diffuse abdominal pain. Hysterectomy. COMPARISON: CT abdomen and pelvis 07/23/2019. TECHNIQUE: CT scan of the abdomen and pelvis performed using helical scanning technique with dynamic intravenous contrast injection. No oral contrast. Images reviewed with lung, soft tissue, and bone windows. Reconstructed coronal and sagittal MPR images reviewed. Delayed images for evaluation of the urinary system also acquired. All images stored on PACS. All CT scanners at this facility use dose modulation, iterative reconstruction, and/or weight based d osing when appropriate to reduce radiation dose to as low as reasonably achievable (ALARA). [facility]: Dose Right [facility]: CareDose [facility]: Dose Right [facility]: Teradose 4D [facility]: Netli CONTRAST TYPE AND DOSE: contrast/concentration: Isovue 350.00 mg/ml; Total Contrast Delivered: 57.0 ml; Total Saline Delivered: 65.0 ml RENAL FUNCTION: GFR > 60. RADIATION DOSE: CT Rad equipment meets quality standard of care and radiation dose reduction techniq ues were employed. CTDIvol: 4.8 mGy. DLP: 461 mGy-cm.. LIMITATIONS: None. FINDINGS: LOWER CHEST: No significant findings. No nodules or infiltrates. LIVER: Liver has normal size and contour. Normal background parenchymal appearance. Tiny cyst at th e right hepatic lobe. No suspicious hepatic mass. Hepatic and portal veins are patent. There is mi ld intrahepatic and extrahepatic biliary ductal dilation, with largest intrahepatic biliary duct fernanda uring 5 mm in the right hepatic lobe. Common duct is mildly prominent measuring 8 mm. No definite c holedocholithiasis. SPLEEN: Normal size. No focal lesions. PANCREAS: No masses. No significant calcifications. No adjacent inflammation or peripancreatic fluid collections. Pancreatic duct not dilated. GALLBLADDER: The gallbladder is contracted. No gallstones or debris within the gallbladder lumen. N o gallbladder wall thickening or pericholecystic fluid given contracted state. ADRENAL GLANDS: No significant masses or asymmetry. RIGHT KIDNEY AND URETER: No solid masses. No significant calcifications. No hydronephrosis or hyd roureter. LEFT KIDNEY AND URETER: No solid masses. No significant calcifications. No hydronephrosis or hydr oureter. AORTA AND VESSELS: No aneurysm. No dissection. Renal arteries, SMA, celiac without stenosis. RETROPERITONEUM: No retroperitoneal adenopathy, hemorrhage or masses. BOWEL AND PERITONEAL CAVITY: Mildly prominent fluid-filled loops of small bowel with stacked appearan ce on coronal images measuring up to 2.5 cm. No definitive transition point. The colon is relativel y decompressed, with interval resolution of constipation. No definite bowel obstruction. No ascites or pneumoperitoneum. APPENDIX: Normal. PELVIS: Post hysterectomy. No adnexal mass. Urinary bladder is unremarkable. ABDOMINAL WALL: No masses. No hernias. BONES: No significant or acute findings. OTHER: Battery pack with spinal stimulator lead wire partially visualized in the posterior left soft tissues. IMPRESSION: 1. Prominent fluid-filled loops of small bowel without focal transition, suggestive of ileus. Interv al resolution of constipation. 2. Contracted gallbladder with mild intrahepatic and extrahepatic biliary ductal dilation. No defini te choledocholithiasis. Clinical correlation for biliary obstruction recommended. Finding may repre sent biliary stricture. 3. TECHNICAL DOCUMENTATION: JOB ID: [id number] Quality ID # [id number]: Final reports with documentation of one or more dose reduction techniques (e.g., Au tomated exposure control, adjustment of the mA and/or kV according to patient size, use of iterative reconstruction technique) 2010 [employer]- All Rights Reserved Reading location - IP/workstation name: [email or web address]
[2019-08-08] MEDS ORDERED: DICYCLOMINE HCL INJ 20 MG/2 ML AMPULE IM ONE (18:12)
[2019-08-08] MEDS ORDERED: METOCLOPRAMIDE HCL 10 MG TABLET PO ONE (18:12)
[2019-08-08 18:57] VITALS: BP 118/76
== END 2019-08-08 18:57 | disposition home or self-care (01) ==
LOC: ER 14:13
DX: K56.7 Ileus, unspecified (principal); R79.89 Other specified abnormal findings of blood chemistry; R10.12 Left upper quadrant pain; R10.816 Epigastric abdominal tenderness; R10.812 Left upper quadrant abdominal tenderness; R11.0 Nausea; J44.9 Chronic obstructive pulmonary disease, unspecified; F17.210 Nicotine dependence, cigarettes, uncomplicated; Z88.1 Allergy status to other antibiotic agents; Z88.3 Allergy status to other anti-infective agents; Z88.6 Allergy status to analgesic agent
CPT/HCPCS: 99284; 96372; 96361; 96374; 96375; 36415; 87086; 80307 ×2; 83690; 84703; 85025; 80053; 81001; 74177; J0500; J2270; J2405; J7030

== ENCOUNTER → 2019-08-11 | Outpatient (CLI) | payer OTHER ==
--- NOTE | 2019-08-11 15:30 | RADIOLOGY REPORT (SQ) ---
EXAM DESCRIPTION: HAND RIGHT 2 VIEWS IMAGES COMPLETED DATE/TIME: 08/11/2019 3:16 pm REASON FOR STUDY: UNSPECIFIED SUPERFICIAL INJURY OF RIGHT THUMB, INIT ENCNTR S60.931A UNSPECIFIED S UPERFICIAL INJURY OF RIGHT THUMB, INIT COMPARISON: None. EXAM PARAMETERS: NUMBER OF VIEWS: Two view. TECHNIQUE: AP and lateral radiographic images acquired of the right hand. LIMITATIONS: None. FINDINGS: MINERALIZATION: Normal. BONES: No acute fracture or dislocation. No worrisome bone lesions. JOINTS: No effusions. SOFT TISSUES: No soft tissue swelling. No foreign body. OTHER: No other significant finding. IMPRESSION: NEGATIVE STUDY OF THE RIGHT HAND. NO RADIOGRAPHIC EVIDENCE OF ACUTE INJURY. TECHNICAL DOCUMENTATION: JOB ID: [id number] 2010 [employer]- All Rights Reserved Reading location - IP/workstation name: [email or web address]
== END ==
LOC: CCC 15:02
PROVIDERS: ATTEND Internal Medicine
DX: S60.931A Unspecified superficial injury of right thumb, initial encounter (principal); X58.XXXA Exposure to other specified factors, initial encounter; Y93.9 Activity, unspecified; Y92.9 Unspecified place or not applicable